=== PATIENT | female | born 1970 | race Caucasian/White ===

== ENCOUNTER 2018-01-31 16:28 | Inpatient (IN) | payer OTHER ==
[2018-01-31 19:05] VITALS: BMI 21.2
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
[2018-02-01] MEDS ORDERED: MENTHOL/PHENOL 1 EACH UD MM PRN (00:05)
[2018-02-01] MEDS ORDERED: MAGNESIUM HYDROX 2400MG/30ML ORAL SUSPENSION 30 ML CUP PO PRN (00:05)
[2018-02-01] MEDS ORDERED: LOPERAMIDE HCL 2 MG CAPSULE PO PRN (00:05)
[2018-02-01] MEDS ORDERED: METHADONE HCL 10 MG TABLET (FOR DETOX USE ONLY) PO ONE ×3 (00:05→23:00)
[2018-02-01] MEDS ORDERED: guaiFENesin/D-METHORPHAN HB 10 ML UNIT-DOSE CUPS PO PRN (00:05)
[2018-02-01] MEDS ORDERED: P-EPHED 60MG/TRIPROLIDI 2.5MG TABLET PO PRN (00:05)
[2018-02-01] MEDS ORDERED: ACETAMINOPHEN 325 MG TABLET (FP) PO PRN (00:05)
[2018-02-01] MEDS ORDERED: MAGNESIUM CITRATE 300 ML BOTTLE PO PRN (00:05)
[2018-02-01] MEDS ORDERED: IBUPROFEN 400 MG TABLET (FP) PO PRN (00:05)
[2018-02-01] MEDS ORDERED: MAG HYDROX/AL HYDROX/SIMETH 30 ML UNIT-DOSE CUP PO PRN (00:05)
[2018-02-01] MEDS ORDERED: cloNIDine HCL 0.1 MG TABLET PO ONE (01:51)
[2018-02-01] MEDS: diazePAM 5 MG TABLET PO PRN ×3 (02:01→22:20)
[2018-02-01] MEDS ORDERED: DOCUSATE SODIUM 100 MG CAPSULE (FP) PO SCH (10:00)
[2018-02-01] MEDS ORDERED: CARVEDILOL 6.25 MG TABLET (FP) PO SCH (10:00)
[2018-02-01] MEDS: ASPIRIN 81 MG CHEWABLE TABLETS PO SCH (10:12)
[2018-02-01] MEDS: PRENATAL VITAMINS W/ FOLIC ACID TABLET (FP) PO SCH (10:13)
[2018-02-01] MEDS: NICOTINE 14 MG/24 HOURS TOPICAL PATCH TD SCH (10:13)
[2018-02-01] MEDS: ENALAPRIL MALEATE 5 MG TABLET (FP) PO SCH (10:13)
[2018-02-01] MEDS: metoPROLOL SUCCINATE 25 MG TAB.SR.24H (FP) PO SCH (10:13)
[2018-02-01] MEDS: ATORVASTATIN CA 40 MG TABLET (FP) PO SCH (10:13)
[2018-02-01] MEDS: amLODIPine BESYLATE 10 MG TABLET (FP) PO SCH (10:15)
--- NOTE | 2018-02-01 11:35 | PN ---
BHS COWS - Scale Resting Pulse: 0= [place] 80 or Below Sweatin= Chills/Flushing Restless Observation: 1= Difficult to Sit Still Pupil Size: 1= Pupils >than Normal Bone or Joint Aches: 2= Severe Diffuse Aches Runny Nose/ Eye Tearin= Nasal Congestion GI Upset > 30mins: 2= Nausea/Diarrhea Tremor Observation of Outstretched Hands: 2= Slight Tremor Visible Yawning Observation: 2= >3x During Session Anxiety or Irritability: 2=Irritable/Anxious Goose Flesh Skin: 0=Smooth Skin COWS Score: 14 BHS Progress Note (SOAP) Subjective: joint pain body ache muscle cramping trouble sleep at night sweat tremor anxiety Objective: 02/01/18 11:37 Vital Signs Temperature 98.1 F 02/01/18 09:31 Pulse Rate 69 02/01/18 09:31 Respiratory Rate 16 02/01/18 09:31 Blood Pressure 143/92 02/01/18 09:31 O2 Sat by Pulse Oximetry (%) lab no available Assessment: 02/01/18 11:37 withdrawal sx Plan: continue detox
--- NOTE | 2018-02-01 15:51 | CONSULT ---
[facility] Psychiatric Consult - Data Date of interview: 02/01/18 Admission source: [facility] Identifying data: Patient is a 47 year old single female, without kids, unemployed, living in a longterm, and supported by [facility]. This is patient's first admission to detox at [facility]. Pt. admitted to for opiate dependence. Substance Abuse History: Smoking Cessation. Smoking history: Current every day smoker. Have you smoked in the past 12 months: Yes. Aproximately how many cigarettes per day: 10. Cigars Per Day: 0. Hx Chewing Tobacco Use: No. Initiated information on smoking cessation: Yes. 'Breaking Loose' booklet given : 01/31/18. - Substance & Tx. History. Hx Alcohol Use: No. Hx Substance Use: Yes. Substance Use Type: Heroin, Marijuana. Hx Substance Use Treatment: Yes ( [facility] 2011). - Substances Abused. Heroin. Route: Inhalation. Frequency: Daily. Amount used: 6 BAGS. Age of first use: 21. Date of Last Use: . Marijuana/Hashish. Route: Smoking. Frequency: 1-2 times per week. Amount used: 1 JOINT. Age of first use: 16. Date of Last Use: 01/30/18 Medical History: Asthma, h/o CHF, CVA (2002,2006), Hep C, ectopic in Psychiatric History: Patient reports one psychiatric hospitalization six years ago at [facility] for depression. Current outpatient psychiatric services is provided at [address] [place] [address] in [facility]. Diagnosis of Bipolar disorder. As per pharmacy claims patient is prescribed latuda 120mg + topamax 100mg TID + Seroquel 100mg qhs + klonopin 0.5mg + clonodine 0.2BID. Pt. reports suboptimal adherence to medications. Reports most recently taking her medication one week ago. Patient denies h/o suicide attempt. Physical/Sexual Abuse/Trauma History: denies. Mental Status Exam - Mental Status Exam Alert and Oriented to: Time, Place, Person Cognitive Function: Good Patient Appearance: Well Groomed Mood: Withdrawn, Euthymic Affect: Mood Congruent Patient Behavior: Fatigued, Cooperative Speech Pattern: Appropriate Voice Loudness: Moderately Soft/Quiet Thought Process: Intact, Goal Oriented Thought Disorder: Not Present Hallucinations: Denies Suicidal Ideation: Denies Homicidal Ideation: Denies Insight/Judgement: Poor Sleep: Fair Appetite: Fair Muscle strength/Tone: Normal Gait/Station: Normal Psychiatric Findings - Problem List ([place] 1, 2,3) (1) Bipolar disorder Current Visit: Yes Status: Chronic Comment: Reports sub- optimal adherence to medications. (2) Opioid dependence with withdrawal Current Visit: Yes Status: Acute (3) Cannabis dependence Current Visit: Yes Status: Acute (4) Substance induced mood disorder Current Visit: Yes Status: Acute - Initial Treatment Plan Initial Treatment Plan: Psychoeducation provided. Detoxification in progress. Will order latuda 60mg qhs (reduced dosaged due to sub-optimal adherence)+ Topamax 100mg BID. Will hold seroquel tonight due to risk of oversedation. Pt. noted to be in bed throughout the day. Pt. agreeable with plan.
--- NOTE | 2018-02-01 17:21 | EKG ---
Test Reason : Blood Pressure : / mmHG Vent. Rate : 069 BPM Atrial Rate : 069 BPM P-R Int : 094 ms QRS Dur : 082 ms QT Int : 406 ms P-R-T Axes : 000 050 019 degrees QTc Int : 435 ms ECTOPIC ATRIAL RHYTHM WITH SHORT NM WITH OCCASIONAL PREMATURE VENTRICULAR COMPLEXES OTHERWISE NORMAL ECG Confirmed by MD YESSY, DEANGELO ([id number]) on 02/01/2018 5:21:03 PM Referred By: Confirmed By:DEANGELO KRISHNAMURTHY MD
[2018-02-01] MEDS ORDERED: LURASIDONE HCL 40 MG, LURASIDONE HCL 20 MG PO SCH (18:30)
[2018-02-01] MEDS ORDERED: LURASIDONE HCL 60 MG PO SCH (18:30)
[2018-02-01] MEDS: TOPIRAMATE 100 MG TABLET PO SCH (22:20)
[2018-02-01] MEDS: THIAMINE HCL 100 MG TABLET (FP) PO SCH (22:21)
[2018-02-02] MEDS: diazePAM 5 MG TABLET PO PRN ×4 (07:49→22:32)
[2018-02-02] MEDS ORDERED: METHADONE HCL 10 MG TABLET (FOR DETOX USE ONLY) PO ONE (10:00)
[2018-02-02] MEDS: ASPIRIN 81 MG CHEWABLE TABLETS PO SCH (10:32)
[2018-02-02] MEDS: ATORVASTATIN CA 40 MG TABLET (FP) PO SCH (10:32)
[2018-02-02] MEDS: PRENATAL VITAMINS W/ FOLIC ACID TABLET (FP) PO SCH (10:32)
[2018-02-02] MEDS: TOPIRAMATE 100 MG TABLET PO SCH ×3 (10:32→22:31)
[2018-02-02] MEDS: NICOTINE 14 MG/24 HOURS TOPICAL PATCH TD SCH (10:35)
[2018-02-02] MEDS: NICOTINE POLACRILEX 2 MG GUM BC PRN (10:35)
[2018-02-02] MEDS: metoPROLOL SUCCINATE 25 MG TAB.SR.24H (FP) PO SCH (10:36)
[2018-02-02] MEDS: amLODIPine BESYLATE 10 MG TABLET (FP) PO SCH (10:36)
[2018-02-02] MEDS: ENALAPRIL MALEATE 5 MG TABLET (FP) PO SCH (10:36)
--- NOTE | 2018-02-02 10:57 | PN ---
BHS COWS - Scale Resting Pulse: 0= [place] 80 or Below Sweatin= Chills/Flushing Restless Observation: 1= Difficult to Sit Still Pupil Size: 1= Pupils >than Normal Bone or Joint Aches: 2= Severe Diffuse Aches Runny Nose/ Eye Tearin= Nasal Congestion GI Upset > 30mins: 2= Nausea/Diarrhea Tremor Observation of Outstretched Hands: 2= Slight Tremor Visible Yawning Observation: 1= 1-2x During Session Anxiety or Irritability: 2=Irritable/Anxious Goose Flesh Skin: 0=Smooth Skin COWS Score: 13 BHS Progress Note (SOAP) Subjective: reported has panic attack on and off now since 8 am requests klonopin that was what the er gave to her patient had 80% breakfast ambulate on [address] social with peers and staff body ache joints pain sweat tremor skin warm able to complete whole sentence Objective: 02/02/18 10:56 Vital Signs Temperature 97.9 F 02/02/18 09:21 Pulse Rate 60 02/02/18 09:21 Respiratory Rate 18 02/02/18 09:21 Blood Pressure 100/66 02/02/18 09:21 O2 Sat by Pulse Oximetry (%) lab not available 02/02/18 10:58 reorder admission lab set Assessment: 02/02/18 10:59 withdrawal sx Plan: continue detox
[2018-02-02] MEDS: CLOPIDOGREL BISULFATE 75 MG TABLET (FP) PO SCH (11:11)
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
[2018-02-02] MEDS ORDERED: QUEtiapine FUMARATE 50 MG TABLET PO ONE (13:30)
[2018-02-02] MEDS: LURASIDONE HCL 40 MG TABLET PO SCH (17:30)
[2018-02-02 17:43] LABS: URINE APPEARANCE CLOUDY; URINE BILIRUBIN NEGATIVE (<2.0 mg/dL); URINE COLOR AMBER; URINE GLUCOSE (UA) NEGATIVE (NEGATIVE); URINE KETONE NEGATIVE (NEGATIVE); URINE LEUK ESTERASE NEGATIVE (NEGATIVE); URINE NITRITE NEGATIVE (NEGATIVE); URINE PROTEIN NEGATIVE (NEGATIVE)
[2018-02-02] MEDS: THIAMINE HCL 100 MG TABLET (FP) PO SCH (22:31)
[2018-02-02] MEDS: QUEtiapine FUMARATE 50 MG TABLET PO SCH (22:32)
[2018-02-03] MEDS: TOPIRAMATE 100 MG TABLET PO SCH ×3 (05:50→22:13)
[2018-02-03] MEDS ORDERED: METHADONE HCL 5 MG TABLET (FOR DETOX USE ONLY) PO ONE (10:00)
[2018-02-03 10:37] LABS: HEMATOCRIT 40.4 % (32.4-45.2); HEMOGLOBIN 13.4 GM/dL (10.7-15.3); MCH 32.1 pg (25.7-33.7); MCHC 33.1 g/dl (32.0-36.0); MEAN CELL VOLUME 97.2 fl (80-96); MEAN PLT VOLUME 10.2 fl (7.5-11.1); PLATELET COUNT 148 K/MM3 (134-434); RBC 4.16 M/mm3 (3.60-5.2); RDW 14.2 % (11.6-15.6); WHITE BLOOD COUNT 5.2 K/mm3 (4.0-10.0)
[2018-02-03 10:54] LABS: CHLORIDE 113 mmol/L (98-107); POTASSIUM 4.4 mmol/L (3.5-5.1); SODIUM 144 mmol/L (136-145)
[2018-02-03 11:12] LABS: ALBUMIN 3.3 g/dl (3.4-5.0); ALK PHOS 113 U/L (45-117); ANION GAP 9 MMOL/L (8-16); BILIRUBIN,TOTAL 0.2 mg/dL (0.2-1.0); BLOOD UREA NITROGEN 19 mg/dL (7-18); CALCIUM 8.4 mg/dL (8.5-10.1); CO2 22 mmol/L (21-32); CREATININE 0.9 mg/dL (0.55-1.02); GLUCOSE,RANDOM 86 mg/dL (74-106); SGOT/AST 58 U/L (15-37); SGPT/ALT 89 U/L (13-61); TOT PROT 6.3 g/dl (6.4-8.2)
[2018-02-03] MEDS: ENALAPRIL MALEATE 5 MG TABLET (FP) PO SCH (11:22)
[2018-02-03] MEDS: ASPIRIN 81 MG CHEWABLE TABLETS PO SCH (11:22)
[2018-02-03] MEDS: CLOPIDOGREL BISULFATE 75 MG TABLET (FP) PO SCH (11:22)
[2018-02-03] MEDS: amLODIPine BESYLATE 10 MG TABLET (FP) PO SCH (11:22)
[2018-02-03] MEDS: metoPROLOL SUCCINATE 25 MG TAB.SR.24H (FP) PO SCH (11:22)
[2018-02-03] MEDS: ATORVASTATIN CA 40 MG TABLET (FP) PO SCH (11:22)
[2018-02-03] MEDS: NICOTINE 14 MG/24 HOURS TOPICAL PATCH TD SCH (11:23)
[2018-02-03] MEDS: PRENATAL VITAMINS W/ FOLIC ACID TABLET (FP) PO SCH (11:23)
[2018-02-03] MEDS: diazePAM 5 MG TABLET PO PRN ×2 (12:18→22:16)
--- NOTE | 2018-02-03 14:00 | PN ---
S Progress Note (SOAP) Subjective: anxiety wants klonopin "I take that every day" discuss risks of benzo mixed with opiate body pain joints pain sweat tremor trouble sleep at night Objective: 02/03/18 13:59 Vital Signs Temperature 98.1 F 02/03/18 09:12 Pulse Rate 73 02/03/18 09:12 Respiratory Rate 18 02/03/18 09:12 Blood Pressure 121/65 02/03/18 09:12 O2 Sat by Pulse Oximetry (%) Laboratory Last Values WBC 5.2 K/mm3 (4.0-10.0) 02/03/18 07:00 RBC 4.16 M/mm3 (3.60-5.2) 02/03/18 07:00 Hgb 13.4 GM/dL (10.7-15.3) 02/03/18 07:00 Hct 40.4 % (32.4-45.2) 02/03/18 07:00 MCV 97.2 fl (80-96) H 02/03/18 07:00 MCH 32.1 pg (25.7-33.7) 02/03/18 07:00 MCHC 33.1 g/dl (32.0-36.0) 02/03/18 07:00 RDW 14.2 % (11.6-15.6) 02/03/18 07:00 Plt Count 148 K/MM3 (134-434) 02/03/18 07:00 MPV 10.2 fl (7.5-11.1) 02/03/18 07:00 Sodium 144 mmol/L (136-145) 02/03/18 07:00 Potassium 4.4 mmol/L (3.5-5.1) 02/03/18 07:00 Chloride 113 mmol/L (98-107) H 02/03/18 07:00 Carbon Dioxide 22 mmol/L (21-32) 02/03/18 07:00 Anion Gap 9 MMOL/L (8-16) 02/03/18 07:00 BUN 19 mg/dL (7-18) H 02/03/18 07:00 Creatinine 0.9 mg/dL (0.55-1.02) 02/03/18 07:00 Creat Clearance w eGFR > 60 (>60) 02/03/18 07:00 Random Glucose 86 mg/dL (74-106) 02/03/18 07:00 Calcium 8.4 mg/dL (8.5-10.1) L 02/03/18 07:00 Total Bilirubin 0.2 mg/dL (0.2-1.0) 02/03/18 07:00 AST 58 U/L (15-37) H 02/03/18 07:00 ALT 89 U/L (13-61) H 02/03/18 07:00 Alkaline Phosphatase 113 U/L (45-117) 02/03/18 07:00 Total Protein 6.3 g/dl (6.4-8.2) L 02/03/18 07:00 Albumin 3.3 g/dl (3.4-5.0) L 02/03/18 07:00 Urine Color [place] 02/02/18 16:45 Urine Appearance Cloudy 02/02/18 16:45 Urine pH 7.0 (5.0-8.0) 02/02/18 16:45 Ur Specific [place] 1.023 (1.001-1.035) 02/02/18 16:45 Urine Protein Negative (NEGATIVE) 02/02/18 16:45 Urine Glucose (UA) Negative (NEGATIVE) 02/02/18 16:45 Urine Ketones Negative (NEGATIVE) 02/02/18 16:45 Urine Blood Negative (NEGATIVE) 02/02/18 16:45 Urine Nitrite Negative (NEGATIVE) 02/02/18 16:45 Urine Bilirubin Negative (<2.0 mg/dL) 02/02/18 16:45 Urine Urobilinogen 2.0 mg/dL (0.2-1.0) H 02/02/18 16:45 Ur Leukocyte Esterase Negative (NEGATIVE) 02/02/18 16:45 RPR Titer Nonreactive (NONREACTIVE) 02/03/18 07:00 lab noted Assessment: 02/03/18 13:59 withdrawal sx Plan: continue detox
[2018-02-03] MEDS: hydrOXYzine PAMOATE 50 MG CAPSULE (FP) PO PRN ×2 (16:45→22:13)
[2018-02-03] MEDS: LURASIDONE HCL 40 MG TABLET PO SCH (17:12)
[2018-02-03] MEDS: PANTOPRAZOLE 20 MG TABLET (FP) PO SCH (17:57)
[2018-02-03] MEDS: QUEtiapine FUMARATE 50 MG TABLET PO SCH (22:13)
[2018-02-03] MEDS: THIAMINE HCL 100 MG TABLET (FP) PO SCH (22:13)
[2018-02-03] MEDS: MELATONIN 5 MG TABLETS PO PRN (22:14)
[2018-02-04] MEDS: hydrOXYzine PAMOATE 50 MG CAPSULE (FP) PO PRN ×3 (03:08→22:41)
[2018-02-04] MEDS: TOPIRAMATE 100 MG TABLET PO SCH ×3 (07:09→22:40)
[2018-02-04] MEDS ORDERED: METHADONE HCL 5 MG TABLET (FOR DETOX USE ONLY) PO ONE (10:00)
[2018-02-04] MEDS: metoPROLOL SUCCINATE 25 MG TAB.SR.24H (FP) PO SCH (10:34)
[2018-02-04] MEDS: PRENATAL VITAMINS W/ FOLIC ACID TABLET (FP) PO SCH (10:34)
[2018-02-04] MEDS: PANTOPRAZOLE 20 MG TABLET (FP) PO SCH (10:34)
[2018-02-04] MEDS: ASPIRIN 81 MG CHEWABLE TABLETS PO SCH (10:34)
[2018-02-04] MEDS: amLODIPine BESYLATE 10 MG TABLET (FP) PO SCH (10:34)
[2018-02-04] MEDS: ATORVASTATIN CA 40 MG TABLET (FP) PO SCH (10:34)
[2018-02-04] MEDS: CLOPIDOGREL BISULFATE 75 MG TABLET (FP) PO SCH (10:34)
[2018-02-04] MEDS: ENALAPRIL MALEATE 5 MG TABLET (FP) PO SCH (10:34)
[2018-02-04] MEDS: NICOTINE 14 MG/24 HOURS TOPICAL PATCH TD SCH (10:36)
--- NOTE | 2018-02-04 11:06 | PN ---
BHS Progress Note (SOAP) Subjective: sweats shakes interrupted sleep ambulating Objective: 02/04/18 11:06 Vital Signs Temperature 98.1 F 02/04/18 10:04 Pulse Rate 69 02/04/18 10:04 Respiratory Rate 20 02/04/18 10:04 Blood Pressure 92/62 02/04/18 10:04 O2 Sat by Pulse Oximetry (%) aaox3 ambulating no acute distress Assessment: 02/04/18 11:06 withdrawal sx Plan: continue detox increase fluids
[2018-02-04] MEDS: LURASIDONE HCL 40 MG TABLET PO SCH (17:18)
[2018-02-04] MEDS: NICOTINE POLACRILEX 2 MG GUM BC PRN (17:24)
[2018-02-04] MEDS: THIAMINE HCL 100 MG TABLET (FP) PO SCH (22:40)
[2018-02-04] MEDS: QUEtiapine FUMARATE 50 MG TABLET PO SCH (22:40)
[2018-02-04] MEDS: MELATONIN 5 MG TABLETS PO PRN (22:41)
[2018-02-05] MEDS: TOPIRAMATE 100 MG TABLET PO SCH ×3 (07:00→22:25)
[2018-02-05] MEDS ORDERED: METHADONE HCL 10 MG TABLET (FOR DETOX USE ONLY) PO ONE (10:00)
[2018-02-05] MEDS: CLOPIDOGREL BISULFATE 75 MG TABLET (FP) PO SCH (10:34)
[2018-02-05] MEDS: PRENATAL VITAMINS W/ FOLIC ACID TABLET (FP) PO SCH (10:34)
[2018-02-05] MEDS: PANTOPRAZOLE 20 MG TABLET (FP) PO SCH (10:34)
[2018-02-05] MEDS: ASPIRIN 81 MG CHEWABLE TABLETS PO SCH (10:34)
[2018-02-05] MEDS: ATORVASTATIN CA 40 MG TABLET (FP) PO SCH (10:35)
[2018-02-05] MEDS: ENALAPRIL MALEATE 5 MG TABLET (FP) PO SCH (10:35)
[2018-02-05] MEDS: amLODIPine BESYLATE 10 MG TABLET (FP) PO SCH (10:35)
[2018-02-05] MEDS: metoPROLOL SUCCINATE 25 MG TAB.SR.24H (FP) PO SCH (10:35)
[2018-02-05] MEDS: NICOTINE 14 MG/24 HOURS TOPICAL PATCH TD SCH (10:35)
[2018-02-05] MEDS: hydrOXYzine PAMOATE 50 MG CAPSULE (FP) PO PRN ×3 (12:05→22:43)
--- NOTE | 2018-02-05 12:24 | PN ---
BHS Progress Note (SOAP) Subjective: pt states she is feeling a lot of anxiety- was on clonidine and klonopin for anxiety- not getting these here. O: Vital Signs - 24 hr 02/04/18 02/04/18 02/04/18 14:00 18:23 22:33 Temperature 97.1 F L 97.5 F L 97.6 F Pulse Rate 81 77 61 Respiratory 16 19 16 Rate Blood Pressure 129/66 101/70 105/64 02/05/18 02/05/18 02/05/18 00:30 07:56 08:59 Temperature 98.2 F Pulse Rate 68 Respiratory 18 18 16 Rate Blood Pressure 95/66 Laboratory Tests 02/02/18 02/03/18 02/03/18 16:45 07:00 07:00 WBC 5.2 RBC 4.16 Hgb 13.4 Hct 40.4 MCV 97.2 H MCH 32.1 MCHC 33.1 RDW 14.2 Plt Count 148 MPV 10.2 Sodium 144 Potassium 4.4 Chloride 113 H Carbon Dioxide 22 Anion Gap 9 BUN 19 H Creatinine 0.9 Creat Clearance w eGFR > 60 Random Glucose 86 Calcium 8.4 L Total Bilirubin 0.2 AST 58 H ALT 89 H Alkaline Phosphatase 113 Total Protein 6.3 L Albumin 3.3 L Urine Color Samanta Urine Appearance Cloudy Urine pH 7.0 Ur Specific [place] 1.023 Urine Protein Negative Urine Glucose (UA) Negative Urine Ketones Negative Urine Blood Negative Urine Nitrite Negative Urine Bilirubin Negative Urine Urobilinogen 2.0 H Ur Leukocyte Esterase Negative RPR Titer 02/03/18 07:00 WBC RBC Hgb Hct MCV MCH MCHC RDW Plt Count MPV Sodium Potassium Chloride Carbon Dioxide Anion Gap BUN Creatinine Creat Clearance w eGFR Random Glucose Calcium Total Bilirubin AST ALT Alkaline Phosphatase Total Protein Albumin Urine Color Urine Appearance Urine pH Ur Specific [place] Urine Protein Urine Glucose (UA) Urine Ketones Urine Blood Urine Nitrite Urine Bilirubin Urine Urobilinogen Ur Leukocyte Esterase RPR Titer Nonreactive mildly increased liver enzymes decreased BP- repeat sBP ~120 a/p: continue detox protocol- about completed. vistaril given for anxiety- pt states not helping, will give clonidine 0.1mg ( takes 0.2mg at home) BP OK Psych consult for anxiety
[2018-02-05] MEDS ORDERED: cloNIDine HCL 0.1 MG TABLET PO ONE (13:00)
[2018-02-05] MEDS: LURASIDONE HCL 40 MG TABLET PO SCH (17:23)
[2018-02-05] MEDS: QUEtiapine FUMARATE 50 MG TABLET PO SCH (22:25)
[2018-02-05] MEDS: THIAMINE HCL 100 MG TABLET (FP) PO SCH (22:25)
[2018-02-06] MEDS ORDERED: METHADONE HCL 5 MG TABLET (FOR DETOX USE ONLY) PO ONE (06:00)
[2018-02-06] MEDS: TOPIRAMATE 100 MG TABLET PO SCH (06:10)
--- NOTE | 2018-02-06 09:01 | DS ---
[facility] Detox Discharge Summary Admission Date: 01/31/18 Discharge Date: 02/06/18 - History Present History: Opioid Dependence Additional Comments: 47 years old female admitted on 01/31/18 for opiate withdrawal sx completed detox regimen tolerated well denies opiate withdrawal sx alert oriented x 3 no acute distress [facility] - Physical Exam Results Vital Signs: Vital Signs Temperature 96.4 F L 02/05/18 22:42 Pulse Rate 69 02/06/18 07:42 Respiratory Rate 18 02/06/18 07:42 Blood Pressure 96/59 02/06/18 07:42 O2 Sat by Pulse Oximetry (%) Pertinent Admission Physical Exam Findings: opiate withdrawal sx Vital Signs Temperature 97.7 F 02/06/18 09:38 Pulse Rate 80 02/06/18 09:38 Respiratory Rate 18 02/06/18 09:38 Blood Pressure 103/68 02/06/18 09:38 O2 Sat by Pulse Oximetry (%) Laboratory Last Values WBC 5.2 K/mm3 (4.0-10.0) 02/03/18 07:00 RBC 4.16 M/mm3 (3.60-5.2) 02/03/18 07:00 Hgb 13.4 GM/dL (10.7-15.3) 02/03/18 07:00 Hct 40.4 % (32.4-45.2) 02/03/18 07:00 MCV 97.2 fl (80-96) H 02/03/18 07:00 MCH 32.1 pg (25.7-33.7) 02/03/18 07:00 MCHC 33.1 g/dl (32.0-36.0) 02/03/18 07:00 RDW 14.2 % (11.6-15.6) 02/03/18 07:00 Plt Count 148 K/MM3 (134-434) 02/03/18 07:00 MPV 10.2 fl (7.5-11.1) 02/03/18 07:00 Sodium 144 mmol/L (136-145) 02/03/18 07:00 Potassium 4.4 mmol/L (3.5-5.1) 02/03/18 07:00 Chloride 113 mmol/L (98-107) H 02/03/18 07:00 Carbon Dioxide 22 mmol/L (21-32) 02/03/18 07:00 Anion Gap 9 MMOL/L (8-16) 02/03/18 07:00 BUN 19 mg/dL (7-18) H 02/03/18 07:00 Creatinine 0.9 mg/dL (0.55-1.02) 02/03/18 07:00 Creat Clearance w eGFR > 60 (>60) 02/03/18 07:00 Random Glucose 86 mg/dL (74-106) 02/03/18 07:00 Calcium 8.4 mg/dL (8.5-10.1) L 02/03/18 07:00 Total Bilirubin 0.2 mg/dL (0.2-1.0) 02/03/18 07:00 AST 58 U/L (15-37) H 02/03/18 07:00 ALT 89 U/L (13-61) H 02/03/18 07:00 Alkaline Phosphatase 113 U/L (45-117) 02/03/18 07:00 Total Protein 6.3 g/dl (6.4-8.2) L 02/03/18 07:00 Albumin 3.3 g/dl (3.4-5.0) L 02/03/18 07:00 Urine Color [place] 02/02/18 16:45 Urine Appearance Cloudy 02/02/18 16:45 Urine pH 7.0 (5.0-8.0) 02/02/18 16:45 Ur Specific [place] 1.023 (1.001-1.035) 02/02/18 16:45 Urine Protein Negative (NEGATIVE) 02/02/18 16:45 Urine Glucose (UA) Negative (NEGATIVE) 02/02/18 16:45 Urine Ketones Negative (NEGATIVE) 02/02/18 16:45 Urine Blood Negative (NEGATIVE) 02/02/18 16:45 Urine Nitrite Negative (NEGATIVE) 02/02/18 16:45 Urine Bilirubin Negative (<2.0 mg/dL) 02/02/18 16:45 Urine Urobilinogen 2.0 mg/dL (0.2-1.0) H 02/02/18 16:45 Ur Leukocyte Esterase Negative (NEGATIVE) 02/02/18 16:45 RPR Titer Nonreactive (NONREACTIVE) 02/03/18 07:00 lab noted - Treatment Hospital Course: Detox Protocol Followed, Detoxed Safely, Responded well, Discharged Condition Good, Rehab Referral Accepted Patient has Accepted a Rehab Referral to: [facility] - Medication Discharge Medications: Ambulatory Orders Aspirin [ASA -] 81 mg PO DAILY 01/31/18 Bisacodyl [Bisacodyl -] 5 mg PO DAILY 01/31/18 Docusate Sodium [Colace -] 100 mg PO DAILY 01/31/18 Famotidine [Heartburn Prevention] 20 mg PO DAILY 01/31/18 Hydroxyzine HCl 50 mg PO DAILY 01/31/18 Loratadine [Claritin -] 10 mg PO DAILY 01/31/18 Tenofovir Alafenamide Fumarate [Vemlidy] 25 mg PO DAILY 01/31/18 Lurasidone HCl [Latuda] 60 mg PO HS 02/01/18 Topiramate [Topamax -] 100 mg PO BID 02/01/18 Quetiapine Fumarate [Seroquel] 50 mg PO HS 02/02/18 Amlodipine Besylate [Norvasc -] 10 mg PO DAILY #30 tablet 02/06/18 Atorvastatin Ca [Lipitor] 40 mg PO DAILY #30 tablet 02/06/18 Clopidogrel Bisulfate [Plavix -] 75 mg PO DAILY #30 tablet 02/06/18 Enalapril Maleate [Vasotec -] 5 mg PO DAILY #30 tablet 02/06/18 Gabapentin [Neurontin -] 800 mg PO DAILY #30 capsule 02/06/18 Metoprolol Succinate [Toprol XL -] 25 mg PO DAILY #30 tab.sr.24h 02/06/18 - Diagnosis (1) Opioid dependence with withdrawal Status: Acute (2) Asthma Status: Chronic Qualifiers: Asthma severity: mild Asthma persistence: intermittent Asthma complication type: with status asthmaticus Qualified Code(s): J45.22 - Mild intermittent asthma with status asthmaticus (3) HTN (hypertension) Status: Chronic Qualifiers: Hypertension type: essential hypertension Qualified Code(s): I10 - Essential (primary) hypertension (4) Heart failure Status: Chronic Qualifiers: Heart failure type: unspecified Heart failure chronicity: unspecified Qualified Code(s): I50.9 - Heart failure, unspecified (5) Hep B w/o coma Status: Chronic (6) Hyperlipidemia Status: Chronic Qualifiers: Hyperlipidemia type: pure hypercholesterolemia Qualified Code(s): E78.00 - Pure hypercholesterolemia, unspecified; E78.0 - Pure hypercholesterolemia (7) Nicotine dependence Status: Acute Qualifiers: Nicotine product type: cigarettes Substance use status: in withdrawal Qualified Code(s): F17.213 - Nicotine dependence, cigarettes, with withdrawal (8) Schizoaffective disorder Status: Suspected Qualifiers: Schizoaffective disorder type: bipolar Qualified Code(s): F25.0 - Schizoaffective disorder, bipolar type - AMA Did Patient Leave Against Medical Advice: No
[2018-02-06 09:38] VITALS: BP 103/68; PULSE 80; TEMP 97.7
[2018-02-06] MEDS: CLOPIDOGREL BISULFATE 75 MG TABLET (FP) PO SCH (09:56)
[2018-02-06] MEDS: amLODIPine BESYLATE 10 MG TABLET (FP) PO SCH (09:56)
[2018-02-06] MEDS: PRENATAL VITAMINS W/ FOLIC ACID TABLET (FP) PO SCH (09:56)
[2018-02-06] MEDS: NICOTINE 14 MG/24 HOURS TOPICAL PATCH TD SCH (09:56)
[2018-02-06] MEDS: ASPIRIN 81 MG CHEWABLE TABLETS PO SCH (09:56)
[2018-02-06] MEDS: ATORVASTATIN CA 40 MG TABLET (FP) PO SCH (09:56)
[2018-02-06] MEDS: PANTOPRAZOLE 20 MG TABLET (FP) PO SCH (09:56)
[2018-02-06] MEDS: ENALAPRIL MALEATE 5 MG TABLET (FP) PO SCH (09:57)
[2018-02-06] MEDS: metoPROLOL SUCCINATE 25 MG TAB.SR.24H (FP) PO SCH (09:57)
== END 2018-02-06 09:47 | disposition home or self-care (01) | DRG 773 ==
LOC: YASAS 16:28 → Y6N 22:47
PROC: HZ2ZZZZ Detoxification Services for Substance Abuse Treatment (ICD-10-PCS; principal; 2018-01-31)
DX: F11.23 Opioid dependence with withdrawal (principal); F12.20 Cannabis dependence, uncomplicated; F17.213 Nicotine dependence, cigarettes, with withdrawal; F25.0 Schizoaffective disorder, bipolar type; F31.9 Bipolar disorder, unspecified; F19.24 Other psychoactive substance dependence with psychoactive substance-induced mood disorder; F41.9 Anxiety disorder, unspecified; I25.10 Atherosclerotic heart disease of native coronary artery without angina pectoris; I11.0 Hypertensive heart disease with heart failure; E78.00 Pure hypercholesterolemia, unspecified; B19.10 Unspecified viral hepatitis B without hepatic coma; J45.909 Unspecified asthma, uncomplicated; Z86.19 Personal history of other infectious and parasitic diseases; Z86.73 Personal history of transient ischemic attack (TIA), and cerebral infarction without residual deficits; Z88.8 Allergy status to other drugs, medicaments and biological substances
CPT/HCPCS: 36415; 80053; 81003; 85027; 86593; 93005; 93010; J0735

== ENCOUNTER 2018-07-04 11:01 | Inpatient (IN) | payer OTHER ==
[2018-07-04 11:17] VITALS: BMI 21.2
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
[2018-07-04] MEDS ORDERED: MAGNESIUM HYDROX 2400MG/30ML ORAL SUSPENSION 30 ML CUP PO PRN (13:59)
[2018-07-04] MEDS ORDERED: MAG HYDROX/AL HYDROX/SIMETH 30 ML UNIT-DOSE CUP PO PRN (13:59)
[2018-07-04] MEDS ORDERED: MAGNESIUM CITRATE 300 ML BOTTLE PO PRN (13:59)
[2018-07-04] MEDS ORDERED: P-EPHED 60MG/TRIPROLIDI 2.5MG TABLET PO PRN (13:59)
[2018-07-04] MEDS ORDERED: IBUPROFEN 400 MG TABLET (FP) PO PRN (13:59)
[2018-07-04] MEDS ORDERED: LOPERAMIDE HCL 2 MG CAPSULE PO PRN (13:59)
[2018-07-04] MEDS ORDERED: MENTHOL/PHENOL 1 EACH UD MM PRN (13:59)
[2018-07-04] MEDS ORDERED: NICOTINE POLACRILEX 2 MG GUM BUC PRN (13:59)
[2018-07-04] MEDS ORDERED: guaiFENesin/D-METHORPHAN HB 10 ML UNIT-DOSE CUPS PO PRN (13:59)
[2018-07-04] MEDS ORDERED: ALBUTEROL SO4 2.5/IPRATROPIUM 0.5 INH SOL 3 ML VIAL.NEB. NEB PRN (14:09)
[2018-07-04] MEDS ORDERED: METHADONE HCL 10 MG TABLET (FOR DETOX USE ONLY) PO ONE ×2 (15:35→23:00)
[2018-07-04] MEDS: CYCLOBENZAPRINE HCL 5 MG TABLET PO PRN (15:56)
[2018-07-04] MEDS: ALBUTEROL SO4 8 GM HFA INHALER IH PRN (15:57)
[2018-07-04] MEDS: chlordiazePOXIDE HCL 25 MG CAPSULE PO SCH ×2 (15:59→22:40)
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
[2018-07-04] MEDS ORDERED: cloNIDine HCL 0.1 MG TABLET PO ONE (17:00)
[2018-07-04] MEDS: ONDANSETRON *ODT* 4 MG TABLET SL PRN (19:08)
[2018-07-04] MEDS ORDERED: QUEtiapine FUMARATE 100 MG TABLET (FP) PO SCH (22:00)
[2018-07-04] MEDS: THIAMINE HCL 100 MG TABLET (FP) PO SCH (22:40)
[2018-07-04] MEDS: RANITIDINE HCL 150 MG TABLET (FP) PO SCH (22:41)
[2018-07-04] MEDS: MELATONIN 5 MG TABLETS PO PRN (22:46)
[2018-07-04] MEDS: ACETAMINOPHEN 325 MG TABLET (FP) PO PRN (23:09)
[2018-07-04 23:20] LABS: URINE APPEARANCE CLEAR; URINE BILIRUBIN NEGATIVE (<2.0 mg/dL); URINE COLOR AMBER; URINE GLUCOSE (UA) NEGATIVE (NEGATIVE); URINE KETONE NEGATIVE (NEGATIVE); URINE LEUK ESTERASE NEGATIVE (NEGATIVE); URINE NITRITE NEGATIVE (NEGATIVE); URINE PROTEIN NEGATIVE (NEGATIVE); URINE UROBILINOGEN 4.0 E.U/dl mg/dL (0.2-1.0)
[2018-07-05] MEDS: chlordiazePOXIDE HCL 25 MG CAPSULE PO SCH ×4 (06:00→22:28)
[2018-07-05] MEDS: ALBUTEROL SO4 8 GM HFA INHALER IH PRN (06:09)
[2018-07-05] MEDS: ACETAMINOPHEN 325 MG TABLET (FP) PO PRN (06:10)
[2018-07-05] MEDS: ONDANSETRON *ODT* 4 MG TABLET SL PRN (06:51)
[2018-07-05] MEDS ORDERED: RANITIDINE HCL 150 MG TABLET (FP) PO SCH (10:00)
[2018-07-05] MEDS ORDERED: METHADONE HCL 10 MG TABLET (FOR DETOX USE ONLY) PO SCH (10:00)
[2018-07-05] MEDS ORDERED: ENALAPRIL MALEATE 5 MG TABLET (FP) PO SCH (10:00)
[2018-07-05] MEDS: ASPIRIN 81 MG CHEWABLE TABLETS PO SCH (10:14)
[2018-07-05] MEDS: ATORVASTATIN CA 40 MG TABLET (FP) PO SCH (10:14)
[2018-07-05] MEDS: RANITIDINE HCL 150 MG TABLET (FP) PO SCH ×2 (10:14→22:28)
[2018-07-05] MEDS: NICOTINE 14 MG/24 HOURS TOPICAL PATCH TD SCH (10:14)
[2018-07-05] MEDS: metoPROLOL SUCCINATE 25 MG TAB.SR.24H (FP) PO SCH (10:14)
[2018-07-05] MEDS: PRENATAL VITAMINS W/ FOLIC ACID TABLET (FP) PO SCH (10:15)
[2018-07-05] MEDS: LORATADINE 10 MG TABLET PO SCH (10:15)
[2018-07-05 11:03] LABS: HEMATOCRIT 42.2 % (32.4-45.2); HEMOGLOBIN 14.6 GM/dL (10.7-15.3); MCH 33.2 pg (25.7-33.7); MCHC 34.6 g/dl (32.0-36.0); MEAN PLT VOLUME 9.5 fl (7.5-11.1); PLATELET COUNT 187 K/MM3 (134-434); RDW 15.2 % (11.6-15.6)
[2018-07-05 11:11] LABS: ALBUMIN 3.7 g/dl (3.4-5.0); ALK PHOS 114 U/L (45-117); ANION GAP 7 MMOL/L (8-16); BILIRUBIN,TOTAL 0.6 mg/dL (0.2-1); BLOOD UREA NITROGEN 9 mg/dL (7-18); CALCIUM 8.5 mg/dL (8.5-10.1); CHLORIDE 106 mmol/L (98-107); CO2 28 mmol/L (21-32); CREATININE 0.8 mg/dL (0.55-1.3); GLUCOSE,RANDOM 101 mg/dL (74-106); POTASSIUM 3.5 mmol/L (3.5-5.1); SGOT/AST 46 U/L (15-37); SGPT/ALT 54 U/L (13-61); SODIUM 142 mmol/L (136-145); TOT PROT 6.8 g/dl (6.4-8.2)
--- NOTE | 2018-07-05 11:54 | PN ---
[facility] CIWA - CIWA Score Nausea/Vomitin-Mild Nausea/No Vomiting Muscle Tremors: 3 Anxiety: 3 Agitation: 3 Paroxysmal Sweats: 1-Minimal Palms Moist Orientation: 1-Uncertain about Date Tacttile Disturbances: 1-Very Mild Itch/Numbness Auditory Disturbances: 0-None Visual Disturbances: 0-None Headache: 1-Very Mild CIWA-Ar Total Score: 14 S COWS - Scale Resting Pulse: 0= [place] 80 or Below Sweatin= Chills/Flushing Restless Observation: 1= Difficult to Sit Still Pupil Size: 0= Normal to Room Light Bone or Joint Aches: 2= Severe Diffuse Aches Runny Nose/ Eye Tearin= Nasal Congestion GI Upset > 30mins: 1= Stomach Cramp Tremor Observation of Outstretched Hands: 1= Tremor [place], Not Seen Yawning Observation: 1= 1-2x During Session Anxiety or Irritability: 2=Irritable/Anxious Goose Flesh Skin: 0=Smooth Skin COWS Score: 10 [facility] Progress Note (SOAP) Subjective: body aches tremor anxiety restlessness x 3 years sober on and off throughout the years tearful determines to care for self and maintain sober Objective: 07/05/18 11:55 Vital Signs Temperature 96.7 F L 07/05/18 09:13 Pulse Rate 68 07/05/18 09:13 Respiratory Rate 16 07/05/18 09:13 Blood Pressure 103/72 07/05/18 09:13 O2 Sat by Pulse Oximetry (%) Laboratory Last Values WBC 9.0 K/mm3 (4.0-10.0) 07/05/18 08:10 RBC 4.40 M/mm3 (3.60-5.2) 07/05/18 08:10 Hgb 14.6 GM/dL (10.7-15.3) 07/05/18 08:10 Hct 42.2 % (32.4-45.2) 07/05/18 08:10 MCV 96.0 fl (80-96) 07/05/18 08:10 MCH 33.2 pg (25.7-33.7) 07/05/18 08:10 MCHC 34.6 g/dl (32.0-36.0) 07/05/18 08:10 RDW 15.2 % (11.6-15.6) 07/05/18 08:10 Plt Count 187 K/MM3 (134-434) D 07/05/18 08:10 MPV 9.5 fl (7.5-11.1) 07/05/18 08:10 Sodium 142 mmol/L (136-145) 07/05/18 08:10 Potassium 3.5 mmol/L (3.5-5.1) 07/05/18 08:10 Chloride 106 mmol/L (98-107) 07/05/18 08:10 Carbon Dioxide 28 mmol/L (21-32) 07/05/18 08:10 Anion Gap 7 MMOL/L (8-16) L 07/05/18 08:10 BUN 9 mg/dL (7-18) 07/05/18 08:10 Creatinine 0.8 mg/dL (0.55-1.3) 07/05/18 08:10 Creat Clearance w eGFR > 60 (>60) 07/05/18 08:10 Random Glucose 101 mg/dL (74-106) 07/05/18 08:10 Calcium 8.5 mg/dL (8.5-10.1) 07/05/18 08:10 Total Bilirubin 0.6 mg/dL (0.2-1) 07/05/18 08:10 AST 46 U/L (15-37) H 07/05/18 08:10 ALT 54 U/L (13-61) 07/05/18 08:10 Alkaline Phosphatase 114 U/L (45-117) 07/05/18 08:10 Total Protein 6.8 g/dl (6.4-8.2) 07/05/18 08:10 Albumin 3.7 g/dl (3.4-5.0) 07/05/18 08:10 Urine Color [place] 07/04/18 22:15 Urine Appearance Clear 07/04/18 22:15 Urine pH 6.0 (5.0-8.0) 07/04/18 22:15 Ur Specific [place] 1.023 (1.010-1.035) 07/04/18 22:15 Urine Protein Negative (NEGATIVE) 07/04/18 22:15 Urine Glucose (UA) Negative (NEGATIVE) 07/04/18 22:15 Urine Ketones Negative (NEGATIVE) 07/04/18 22:15 Urine Blood Negative (NEGATIVE) 07/04/18 22:15 Urine Nitrite Negative (NEGATIVE) 07/04/18 22:15 Urine Bilirubin Negative (<2.0 mg/dL) 07/04/18 22:15 Urine Urobilinogen 4.0 e.u/dl mg/dL (0.2-1.0) H 07/04/18 22:15 Ur Leukocyte Esterase Negative (NEGATIVE) 07/04/18 22:15 lab noted increase enalapril to 5 mg bid Assessment: 07/05/18 11:56 withdrawal sx denies suicidal ideation that suicided patient is angry but good self control verbalizes feelings and coping machines Plan: continue detox
[2018-07-05] MEDS: ENALAPRIL MALEATE 5 MG TABLET (FP) PO SCH ×2 (12:09→22:28)
[2018-07-05] MEDS: chlordiazePOXIDE HCL 25 MG CAPSULE PO PRN (15:45)
--- NOTE | 2018-07-05 20:03 | PN ---
[facility] Progress Note Note: Psychiatry Attending's note (delayed) : Called by nurse. Issue : patient requests seroquel at bedtime. Chart reviewed. Normal vitals. No sedation reported. Patient is ambulatory all day.Steady gait. Anxious. Intervention : seroquel 100 mg po hs. Ordered. Will follow and titrate as clinically indicated.
[2018-07-05] MEDS: THIAMINE HCL 100 MG TABLET (FP) PO SCH (22:28)
[2018-07-05] MEDS: QUEtiapine FUMARATE 100 MG TABLET (FP) PO SCH (22:28)
[2018-07-05] MEDS: MELATONIN 5 MG TABLETS PO PRN (22:44)
[2018-07-06] MEDS: chlordiazePOXIDE HCL 25 MG CAPSULE PO PRN ×4 (01:22→22:18)
[2018-07-06] MEDS: chlordiazePOXIDE HCL 25 MG CAPSULE PO SCH ×2 (05:32→10:35)
[2018-07-06] MEDS: PRENATAL VITAMINS W/ FOLIC ACID TABLET (FP) PO SCH (10:34)
[2018-07-06] MEDS: LORATADINE 10 MG TABLET PO SCH (10:35)
[2018-07-06] MEDS: ASPIRIN 81 MG CHEWABLE TABLETS PO SCH (10:35)
[2018-07-06] MEDS: metoPROLOL SUCCINATE 25 MG TAB.SR.24H (FP) PO SCH (10:35)
[2018-07-06] MEDS: METHADONE HCL 5 MG TABLET (FOR DETOX USE ONLY) PO SCH (10:36)
[2018-07-06] MEDS: RANITIDINE HCL 150 MG TABLET (FP) PO SCH (10:36)
[2018-07-06] MEDS: NICOTINE 14 MG/24 HOURS TOPICAL PATCH TD SCH (10:36)
[2018-07-06] MEDS: CYCLOBENZAPRINE HCL 5 MG TABLET PO PRN ×2 (10:36→18:24)
[2018-07-06] MEDS: ENALAPRIL MALEATE 5 MG TABLET (FP) PO SCH ×2 (10:36→22:18)
[2018-07-06] MEDS: ATORVASTATIN CA 40 MG TABLET (FP) PO SCH (10:36)
[2018-07-06] MEDS: ONDANSETRON *ODT* 4 MG TABLET SL PRN (12:35)
[2018-07-06] MEDS ORDERED: metoPROLOL SUCCINATE 25 MG TAB.SR.24H (FP) PO ONE (14:46)
--- NOTE | 2018-07-06 14:46 | PN ---
S CIWA - CIWA Score Nausea/Vomitin Muscle Tremors: 2 Anxiety: 4-Mod. Anxious/Guarded Agitation: 3 Paroxysmal Sweats: 2 Orientation: 2-Disoriented Date<2 days Tacttile Disturbances: 1-Very Mild Itch/Numbness Auditory Disturbances: 0-None Visual Disturbances: 1-Very Mild Sensitivity Headache: 0-None Present CIWA-Ar Total Score: 18 [facility] COWS - Scale Resting Pulse: 1= [place] 81-100 Sweatin= Chills/Flushing Restless Observation: 1= Difficult to Sit Still Pupil Size: 0= Normal to Room Light Bone or Joint Aches: 2= Severe Diffuse Aches Runny Nose/ Eye Tearin= None GI Upset > 30mins: 2= Nausea/Diarrhea Tremor Observation of Outstretched Hands: 2= Slight Tremor Visible Yawning Observation: 1= 1-2x During Session Anxiety or Irritability: 4=Extreme Anxiety Goose Flesh Skin: 0=Smooth Skin COWS Score: 14 [facility] Progress Note (SOAP) Subjective: Interrupted Sleep, H/A, Nausea, Tremors, Sweating, Diarrhea, Body Aches, Hot / Cold Sensations. Objective: PATIENT A & O X 2 (UNCERTAIN ABOUT CURRENT DAY / DATE). PATIENT OBSERVED AMBULATING ON UNIT. IN NO ACUTE DISTRESS. 07/06/18 14:43 Vital Signs Temperature 98.3 F 07/06/18 13:36 Pulse Rate 82 07/06/18 13:36 Respiratory Rate 18 07/06/18 13:36 Blood Pressure 147/110 H 07/06/18 13:36 O2 Sat by Pulse Oximetry (%) Laboratory Tests 07/04/18 07/05/18 07/05/18 22:15 08:10 08:10 WBC 9.0 RBC 4.40 Hgb 14.6 Hct 42.2 MCV 96.0 MCH 33.2 MCHC 34.6 RDW 15.2 Plt Count 187 D MPV 9.5 Sodium 142 Potassium 3.5 Chloride 106 Carbon Dioxide 28 Anion Gap 7 L BUN 9 Creatinine 0.8 Creat Clearance w eGFR > 60 Random Glucose 101 Calcium 8.5 Total Bilirubin 0.6 AST 46 H ALT 54 Alkaline Phosphatase 114 Total Protein 6.8 Albumin 3.7 Urine Color Sam[place] Urine Appearance Clear Urine pH 6.0 Ur Specific [place] 1.023 Urine Protein Negative Urine Glucose (UA) Negative Urine Ketones Negative Urine Blood Negative Urine Nitrite Negative Urine Bilirubin Negative Urine Urobilinogen 4.0 e.u/dl H Ur Leukocyte Esterase Negative RPR Titer 07/05/18 08:10 WBC RBC Hgb Hct MCV MCH MCHC RDW Plt Count MPV Sodium Potassium Chloride Carbon Dioxide Anion Gap BUN Creatinine Creat Clearance w eGFR Random Glucose Calcium Total Bilirubin AST ALT Alkaline Phosphatase Total Protein Albumin Urine Color Urine Appearance Urine pH Ur Specific [place] Urine Protein Urine Glucose (UA) Urine Ketones Urine Blood Urine Nitrite Urine Bilirubin Urine Urobilinogen Ur Leukocyte Esterase RPR Titer Nonreactive LABS NOTED. Assessment: 07/06/18 14:46 WITHDRAWAL SYMPTOMS. HYPERTENSION. Plan: CONTINUE DETOX. PRN IMMODIUM PO FOR DIARRHEA. INCREASE METOPROLOL (TOPROL XL) TO 50 MG PO DAILY FOR ELEVATED BP DESPITE TREATMENT. ZOFRAN SL FOR NAUSEA. PROTONIX PO FOR ACID REFLUX (PATIENT REPORTS HISTORY OF TAKING PRILOSEC FOR ACID REFLUX OUTPATIENT).
--- NOTE | 2018-07-06 16:36 | PN ---
[facility] Progress Note Note: Received Notice from RN that Patient Reports that Immdoium has not been effective for treatment of Diarrhea. Will change to Lomotil PO PRN for treatment of diarrhea going forward. Eran Fuentes NP
[2018-07-06] MEDS: DIPHENOXYLATE 2.5/ATROPINE.025 1 COMBO TABLET PO PRN ×2 (18:23→22:19)
[2018-07-06] MEDS: chlordiazePOXIDE 5 MG CAPSULE PO SCH ×2 (18:30→22:41)
[2018-07-06] MEDS: QUEtiapine FUMARATE 100 MG TABLET (FP) PO SCH (22:18)
[2018-07-06] MEDS: THIAMINE HCL 100 MG TABLET (FP) PO SCH (22:19)
[2018-07-06] MEDS: MELATONIN 5 MG TABLETS PO PRN (22:19)
[2018-07-07] MEDS: chlordiazePOXIDE 5 MG CAPSULE PO SCH ×2 (06:18→10:56)
[2018-07-07] MEDS: PANTOPRAZOLE 40 MG TABLET (FP) PO SCH (06:19)
[2018-07-07] MEDS: ONDANSETRON *ODT* 4 MG TABLET SL PRN ×3 (06:27→20:15)
--- NOTE | 2018-07-07 09:22 | PN ---
S Progress Note (SOAP) Subjective: alert,irritable,anxious,interrupted sleep Objective: 07/07/18 09:22 Vital Signs Temperature 97.8 F 07/07/18 09:01 Pulse Rate 63 07/07/18 09:01 Respiratory Rate 18 07/07/18 09:01 Blood Pressure 104/51 L 07/07/18 09:01 O2 Sat by Pulse Oximetry (%) Assessment: 07/07/18 09:22 withdrawal symptom Plan: continue detox
[2018-07-07] MEDS: METHADONE HCL 5 MG TABLET (FOR DETOX USE ONLY) PO SCH (10:55)
[2018-07-07] MEDS: ENALAPRIL MALEATE 5 MG TABLET (FP) PO SCH ×2 (10:56→23:09)
[2018-07-07] MEDS: ASPIRIN 81 MG CHEWABLE TABLETS PO SCH (10:56)
[2018-07-07] MEDS: DIPHENOXYLATE 2.5/ATROPINE.025 1 COMBO TABLET PO PRN ×2 (10:56→19:20)
[2018-07-07] MEDS: CYCLOBENZAPRINE HCL 5 MG TABLET PO PRN (10:56)
[2018-07-07] MEDS: PRENATAL VITAMINS W/ FOLIC ACID TABLET (FP) PO SCH (10:56)
[2018-07-07] MEDS: ATORVASTATIN CA 40 MG TABLET (FP) PO SCH (10:56)
[2018-07-07] MEDS: NICOTINE 14 MG/24 HOURS TOPICAL PATCH TD SCH (10:57)
[2018-07-07] MEDS: LORATADINE 10 MG TABLET PO SCH (10:58)
[2018-07-07] MEDS: chlordiazePOXIDE HCL 25 MG CAPSULE PO PRN (13:45)
[2018-07-07] MEDS: chlordiazePOXIDE HCL 10 MG CAPSULE PO SCH ×2 (18:25→23:09)
[2018-07-07] MEDS: QUEtiapine FUMARATE 100 MG TABLET (FP) PO SCH (23:09)
[2018-07-07] MEDS: THIAMINE HCL 100 MG TABLET (FP) PO SCH (23:13)
[2018-07-08] MEDS: chlordiazePOXIDE HCL 10 MG CAPSULE PO SCH ×2 (05:27→10:24)
[2018-07-08] MEDS: PANTOPRAZOLE 40 MG TABLET (FP) PO SCH (05:27)
[2018-07-08] MEDS: ONDANSETRON *ODT* 4 MG TABLET SL PRN (09:02)
[2018-07-08] MEDS: DIPHENOXYLATE 2.5/ATROPINE.025 1 COMBO TABLET PO PRN (09:17)
[2018-07-08] MEDS ORDERED: QUEtiapine FUMARATE 25 MG TABLET (FP) PO ONE (09:39)
--- NOTE | 2018-07-08 09:43 | PN ---
Psychiatric Progress Note Vital Signs: Vital Signs Period Temp Pulse Resp BP Sys/Murillo Pulse Ox Last 24 Hr 97.0 F-100.2 F 69-76 16-18 98-158/53-87 Date of Session: 07/08/18 Chief Complaint:: " I get anxious and i lash out." Current Medications: Active Medications Generic Name Dose Route Start Last Admin Trade Name Freq PRN Reason Stop Dose Admin Acetaminophen 650 mg 07/04/18 13:59 07/05/18 06:10 Tylenol - PO 650 mg Q4H PRN Administration FEVER Al Hydroxide/Mg Hydroxide 30 ml 07/04/18 13:59 07/04/18 18:12 Mylanta Oral Suspension - PO 30 ml Q6H PRN Administration DYSPEPSIA Albuterol Sulfate 2 puff 07/04/18 14:04 07/05/18 06:09 Ventolin Hfa Inhaler - IH 2 puff Q4H PRN Administration SHORT OF BREATH/WHEEZING Albuterol/Ipratropium 1 amp 07/04/18 14:09 07/05/18 06:14 Duoneb - NEB 1 amp Q6H PRN Administration SHORTNESS OF BREATH Aspirin 81 mg 07/05/18 10:00 07/07/18 10:56 Asa - PO 81 mg DAILY JUN Administration Atorvastatin Calcium 40 mg 07/05/18 10:00 07/07/18 10:56 Lipitor - PO 40 mg DAILY JUN Administration Chlordiazepoxide HCl 10 mg 07/07/18 17:00 07/08/18 05:27 Librium - PO 07/08/18 11:01 10 mg [id number] JUN Administration Cyclobenzaprine HCl 5 mg 07/04/18 14:57 07/07/18 10:56 Cyclobenzaprine Hcl PO 5 mg TID PRN Administration BACK PAIN Diphenoxylate HCl/Atropine 1 combo 07/06/18 16:34 07/08/18 09:17 Lomotil - PO 07/09/18 16:33 1 combo Q8H PRN Administration DIARRHEA Enalapril Maleate 5 mg 07/05/18 10:00 07/07/18 23:09 Vasotec - PO 5 mg BID JUN Administration Eucalyptus/Menthol/Phenol/Sorbitol 1 each 07/04/18 13:59 07/05/18 06:10 Cepastat Lozenge - MM 1 each Q4H PRN Administration SORE THROAT Guaifenesin 10 ml 07/04/18 13:59 Robitussin Dm - PO Q6H PRN COUGH Ibuprofen 400 mg 07/04/18 13:59 Motrin - PO Q6H PRN PAIN LEVEL 4-6 Loratadine 10 mg 07/05/18 10:00 07/07/18 10:58 Claritin - PO 10 mg DAILY JUN Administration Magnesium Citrate 300 ml 07/04/18 13:59 Citroma - PO Q48H PRN CONSTIPATION Magnesium Hydroxide 30 ml 07/04/18 13:59 Milk Of Magnesia - PO DAILY PRN CONSTIPATION Melatonin 5 mg 07/04/18 22:00 07/06/18 22:19 Melatonin PO 5 mg HS PRN Administration INSOMNIA Methadone HCl 5 mg 07/09/18 06:00 Dolophine - PO 07/09/18 06:01 DAILY@0600 JUN Methadone HCl 10 mg 07/08/18 10:00 Dolophine - PO 07/08/18 10:01 DAILY [facility] Metoprolol Succinate 50 mg 07/07/18 10:00 07/07/18 10:56 Toprol Xl - PO 50 mg DAILY JUN Administration Nicotine 14 mg 07/05/18 10:00 07/07/18 10:57 Nicoderm Patch - TD 14 mg DAILY JUN Administration Nicotine Polacrilex 2 mg 07/04/18 13:59 Nicorette Gum - BUC Q2H PRN NICOTINE REPLACEMENT RX Ondansetron HCl 4 mg 07/06/18 10:53 07/08/18 09:02 Zofran Odt - SL 4 mg Q8H PRN Administration NAUSEA AND/OR VOMITING Pantoprazole Sodium 40 mg 07/07/18 06:00 07/08/18 05:27 Protonix - PO 40 mg DAILY@0600 JUN Administration Multivit/Folic Acid/Iron 1 tab 07/05/18 10:00 07/07/18 10:56 Vitamins (Sjr) - PO 1 tab DAILY JUN Administration Pseudoephedrine/Triprolidine 1 combo 07/04/18 13:59 07/05/18 06:10 Actifed - PO 1 combo TID PRN Administration NASAL CONGESTION Quetiapine Fumarate 100 mg 07/05/18 22:00 07/07/18 23:09 Seroquel - PO 100 mg HS JUN Administration Quetiapine Fumarate 25 mg 07/08/18 09:39 Seroquel - PO 07/08/18 09:40 ONCE ONE Thiamine HCl 100 mg 07/04/18 22:00 07/07/18 23:13 Vitamin B1 - PO Not Given HS [facility] Provider note:: Dr. Duffy note read and appreciated. Patient irritable this moring. Observed yelling at nursing staff and having difficulty following directions. Patient reports worsening anxiety and irritability this morning because of her withdrawals. Medications reviewed. Will order one time dose of seroquel 25mg and vistaril 25mg q4h for agitation. Benefits and side effects discussed. Verbal consent given. Total face to face time:: 25 Mental Status Exam - Mental Status Exam Alert and Oriented to: Time, Place, Person Cognitive Function: Good Patient Appearance: Well Groomed Mood: Irritable Affect: Mood Congruent Patient Behavior: Agitated Speech Pattern: Clear Voice Loudness: Normal Thought Process: Intact, Goal Oriented Thought Disorder: Not Present Hallucinations: Denies Suicidal Ideation: Denies Homicidal Ideation: Denies Insight/Judgement: Poor Sleep: Fair Appetite: Fair Muscle strength/Tone: Normal Gait/Station: Normal Psychiatric Treatment Plan - Problem List (1) Alcohol dependence with withdrawal Current Visit: Yes (2) Opioid dependence with withdrawal Current Visit: Yes (3) Cannabis dependence Current Visit: Yes (4) Nicotine dependence Current Visit: Yes Qualifiers: Nicotine product type: cigarettes Substance use status: in withdrawal Qualified Code(s): F17.213 - Nicotine dependence, cigarettes, with withdrawal (5) Schizoaffective disorder Current Visit: Yes Qualifiers: Schizoaffective disorder type: bipolar Qualified Code(s): F25.0 - Schizoaffective disorder, bipolar type (6) Substance induced mood disorder Current Visit: Yes
--- NOTE | 2018-07-08 09:55 | PN ---
S Progress Note (SOAP) Subjective: alert,diarrhea,no vomiting,on lomotil,stool for c diff pending,will d/c ensure , did not want to be on maisha diet, ambulation,anxious Objective: 07/08/18 09:53 Vital Signs Temperature 97.8 F 07/08/18 09:14 Pulse Rate 69 07/08/18 09:14 Respiratory Rate 18 07/08/18 09:14 Blood Pressure 102/60 07/08/18 09:14 O2 Sat by Pulse Oximetry (%) Assessment: 07/08/18 09:54 withdrawal symptom Plan: continue detox,d/c ensure,encourage oral fluid,repeat cbc,cmp in am
[2018-07-08] MEDS ORDERED: METHADONE HCL 10 MG TABLET (FOR DETOX USE ONLY) PO SCH (10:00)
[2018-07-08] MEDS: CYCLOBENZAPRINE HCL 5 MG TABLET PO PRN ×3 (10:24→22:13)
[2018-07-08] MEDS: ATORVASTATIN CA 40 MG TABLET (FP) PO SCH (10:24)
[2018-07-08] MEDS: PRENATAL VITAMINS W/ FOLIC ACID TABLET (FP) PO SCH (10:24)
[2018-07-08] MEDS: ASPIRIN 81 MG CHEWABLE TABLETS PO SCH (10:24)
[2018-07-08] MEDS: ENALAPRIL MALEATE 5 MG TABLET (FP) PO SCH ×2 (10:25→22:13)
[2018-07-08] MEDS: NICOTINE 14 MG/24 HOURS TOPICAL PATCH TD SCH (10:25)
[2018-07-08] MEDS: LORATADINE 10 MG TABLET PO SCH (10:25)
--- NOTE | 2018-07-08 11:30 | PN ---
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
--- NOTE | 2018-07-08 12:26 | PN ---
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
[2018-07-08] MEDS: hydrOXYzine PAMOATE 25 MG CAPSULE (FP) PO PRN ×3 (12:30→22:13)
[2018-07-08] MEDS: metroNIDAZOLE 250 MG TABLET PO SCH ×2 (14:12→22:12)
[2018-07-08] MEDS: QUEtiapine FUMARATE 100 MG TABLET (FP) PO SCH (22:13)
[2018-07-08] MEDS: THIAMINE HCL 100 MG TABLET (FP) PO SCH (22:13)
[2018-07-09] MEDS ORDERED: METHADONE HCL 5 MG TABLET (FOR DETOX USE ONLY) PO SCH (06:00)
[2018-07-09] MEDS: metroNIDAZOLE 250 MG TABLET PO SCH (07:10)
[2018-07-09] MEDS: PANTOPRAZOLE 40 MG TABLET (FP) PO SCH (07:10)
[2018-07-09] MEDS: hydrOXYzine PAMOATE 25 MG CAPSULE (FP) PO PRN (07:12)
[2018-07-09 08:39] VITALS: BP 88/54; PULSE 59; TEMP 97.9
--- NOTE | 2018-07-09 08:53 | PN ---
S Progress Note (SOAP) Subjective: alert,no complaint,no diarrhea,no vomiting,tolerate diet well,no complaint Objective: 07/09/18 09:20 bp 106/56,p64,r16,t98 Assessment: 07/09/18 09:21 patient felt much better,no diarrhea,tolerate diet well,did not want to wait for labs test today and result of stool test,did not want to give specimen for ova and parasite Plan: discharge in good condition,prescription to [facility],follow up with rehab in [place]
--- NOTE | 2018-07-09 09:29 | DS ---
[facility] Detox Discharge Summary Admission Date: 07/04/18 Discharge Date: 07/09/18 - History Present History: Alcohol Dependence, Opioid Dependence Additional Comments: patient is stable for discharge today,stool for c difficile is negative,follow up with rehab [place],prescription to [place] Pertinent Past History: asthma hypertension cad hyperlipidemioa - Physical Exam Results Vital Signs: Vital Signs Temperature 97.9 F 07/09/18 08:38 Pulse Rate 59 L 07/09/18 08:38 Respiratory Rate 16 07/09/18 08:38 Blood Pressure 88/54 L 07/09/18 08:38 O2 Sat by Pulse Oximetry (%) - Treatment Hospital Course: Detox Protocol Followed, Detoxed Safely, Responded well, Discharged Condition Good, Rehab Referral Accepted Patient has Accepted a Rehab Referral to: [place] - Medication Discharge Medications: Ambulatory Orders Loratadine [Claritin -] 10 mg PO DAILY 01/31/18 Tenofovir Alafenamide Fumarate [Vemlidy] 25 mg PO DAILY 01/31/18 Quetiapine Fumarate [Seroquel] 100 mg PO BID 02/02/18 Enalapril Maleate [Vasotec -] 5 mg PO DAILY #30 tablet 02/06/18 Gabapentin [Neurontin -] 800 mg PO DAILY #30 capsule 02/06/18 Metoprolol Succinate [Toprol XL -] 25 mg PO DAILY #30 tab.sr.24h 02/06/18 Ranitidine [Zantac -] 150 mg PO DAILY 07/04/18 Aspirin [ASA -] 81 mg PO DAILY #30 tab.chew 07/09/18 Atorvastatin Ca [Lipitor] 40 mg PO DAILY #30 tablet 07/09/18 Pantoprazole Sodium [Protonix -] 40 mg PO DAILY@0600 #10 tablet.ec 07/09/18 metroNIDAZOLE [Flagyl -] 500 mg PO TID #20 tablet 07/09/18 - Diagnosis (1) Alcohol dependence with withdrawal Current Visit: Yes Status: Acute (2) Opioid dependence with withdrawal Current Visit: Yes Status: Acute (3) Asthma Current Visit: Yes Status: Chronic Qualifiers: Asthma severity: mild Asthma persistence: intermittent Asthma complication type: with status asthmaticus Qualified Code(s): J45.22 - Mild intermittent asthma with status asthmaticus (4) CAD (coronary artery disease) Current Visit: Yes Status: Chronic (5) Cannabis dependence Current Visit: Yes Status: Chronic (6) HTN (hypertension) Current Visit: Yes Status: Chronic Qualifiers: Hypertension type: essential hypertension Qualified Code(s): I10 - Essential (primary) hypertension (7) Hyperlipidemia Current Visit: Yes Status: Chronic Qualifiers: Hyperlipidemia type: pure hypercholesterolemia Qualified Code(s): E78.00 - Pure hypercholesterolemia, unspecified; E78.0 - Pure hypercholesterolemia (8) Nicotine dependence Current Visit: Yes Status: Chronic Qualifiers: Nicotine product type: cigarettes Substance use status: in withdrawal Qualified Code(s): F17.213 - Nicotine dependence, cigarettes, with withdrawal (9) Schizoaffective disorder Current Visit: Yes Status: Chronic Qualifiers: Schizoaffective disorder type: bipolar Qualified Code(s): F25.0 - Schizoaffective disorder, bipolar type (10) Diarrhea Current Visit: Yes Status: Acute - AMA Did Patient Leave Against Medical Advice: No
[2018-07-09 11:25] LABS: ALBUMIN 3.1 g/dl (3.4-5.0); ALK PHOS 140 U/L (45-117); ANION GAP 5 MMOL/L (8-16); BILIRUBIN,TOTAL 0.3 mg/dL (0.2-1); BLOOD UREA NITROGEN 10 mg/dL (7-18); CALCIUM 8.2 mg/dL (8.5-10.1); CHLORIDE 108 mmol/L (98-107); CO2 28 mmol/L (21-32); CREATININE 0.9 mg/dL (0.55-1.3); GLUCOSE,RANDOM 118 mg/dL (74-106); POTASSIUM 4.5 mmol/L (3.5-5.1); SGOT/AST 50 U/L (15-37); SGPT/ALT 61 U/L (13-61); SODIUM 141 mmol/L (136-145); TOT PROT 6.2 g/dl (6.4-8.2)
[2018-07-09 11:29] LABS: HEMATOCRIT 41.4 % (32.4-45.2); HEMOGLOBIN 14.4 GM/dL (10.7-15.3); MCH 34.5 pg (25.7-33.7); MCHC 34.7 g/dl (32.0-36.0); MEAN CELL VOLUME 99.4 fl (80-96); MEAN PLT VOLUME 10.3 fl (7.5-11.1); PLATELET COUNT 137 K/MM3 (134-434); RBC 4.17 M/mm3 (3.60-5.2); RDW 14.8 % (11.6-15.6)
== END 2018-07-09 09:30 | disposition home or self-care (01) | DRG 773 ==
LOC: YASAS 11:01 → Y3N 14:05 → Y3E 07-05 21:04 → Y6N 07-05 21:08
PROVIDERS: ADMIT Surgery; ATTEND Surgery
PROC: HZ2ZZZZ Detoxification Services for Substance Abuse Treatment (ICD-10-PCS; principal; 2018-07-04)
DX: F11.23 Opioid dependence with withdrawal (principal); F10.230 Alcohol dependence with withdrawal, uncomplicated; F12.20 Cannabis dependence, uncomplicated; F17.213 Nicotine dependence, cigarettes, with withdrawal; F25.0 Schizoaffective disorder, bipolar type; F19.24 Other psychoactive substance dependence with psychoactive substance-induced mood disorder; I10 Essential (primary) hypertension; J45.22 Mild intermittent asthma with status asthmaticus; I25.10 Atherosclerotic heart disease of native coronary artery without angina pectoris; E78.5 Hyperlipidemia, unspecified; R19.7 Diarrhea, unspecified; G47.00 Insomnia, unspecified; K21.9 Gastro-esophageal reflux disease without esophagitis; B18.2 Chronic viral hepatitis C; B18.1 Chronic viral hepatitis B without delta-agent; Z86.73 Personal history of transient ischemic attack (TIA), and cerebral infarction without residual deficits; Z91.19 Patient's noncompliance with other medical treatment and regimen; Z88.2 Allergy status to sulfonamides; Z95.5 Presence of coronary angioplasty implant and graft
CPT/HCPCS: 36415; 80053; 81003; 85027; 86593; 87324; 87449; 94640; J0735; Q0162

== ENCOUNTER 2019-01-11 10:36 | Inpatient (IN) | payer OTHER ==
[2019-01-11 11:28] VITALS: BMI 18.4
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
[2019-01-11] MEDS ORDERED: MENTHOL/PHENOL 1 EACH UD MM PRN (11:51)
[2019-01-11] MEDS ORDERED: MAG HYDROX/AL HYDROX/SIMETH 30 ML UNIT-DOSE CUP PO PRN (11:51)
[2019-01-11] MEDS ORDERED: BISMUTH SUBSALICYLATE 262 MG/15 ML BTL PO PRN (11:51)
[2019-01-11] MEDS ORDERED: MAGNESIUM CITRATE 300 ML BOTTLE PO PRN (11:51)
[2019-01-11] MEDS ORDERED: IBUPROFEN 400 MG TABLET (FP) PO PRN (11:51)
[2019-01-11] MEDS ORDERED: ACETAMINOPHEN 325 MG TABLET (FP) PO PRN ×2 (11:51)
[2019-01-11] MEDS ORDERED: MAGNESIUM HYDROX 2400MG/30ML ORAL SUSPENSION 30 ML CUP PO PRN (11:51)
[2019-01-11] MEDS ORDERED: ALBUTEROL SO4 8 GM HFA INHALER IH PRN (11:54)
[2019-01-11] MEDS ORDERED: ONDANSETRON *ODT* 4 MG TABLET SL PRN (11:54)
[2019-01-11] MEDS ORDERED: TENOFOVIR ALAFENAMIDE FUMARATE 25 MG PO SCH (12:00)
[2019-01-11] MEDS ORDERED: cloNIDine HCL 0.1 MG TABLET PO PRN (13:02)
--- NOTE | 2019-01-11 13:08 | PN ---
[facility] Progress Note Note: patient is heroin dependence,alcohol dependence with ccoaine abused,need inpatient detox,medicaloly managed,methadone and librium regimen
[2019-01-11] MEDS ORDERED: METHADONE HCL 10 MG TABLET (FOR DETOX USE ONLY) PO ONE (13:30)
--- NOTE | 2019-01-11 13:41 | EKG ---
Test Reason : Blood Pressure : / mmHG Vent. Rate : 057 BPM Atrial Rate : 057 BPM P-R Int : 120 ms QRS Dur : 088 ms QT Int : 434 ms P-R-T Axes : 045 060 016 degrees QTc Int : 422 ms SINUS BRADYCARDIA OTHERWISE NORMAL ECG WHEN COMPARED WITH ECG OF 01-FEB-2018 01:16, PREMATURE VENTRICULAR COMPLEXES ARE NO LONGER PRESENT Confirmed by KRZYSZTOF CALDWELL MD ([id number]) on 01/11/2019 1:40:45 PM Referred By: Confirmed By:KRZYSZTOF CALDWELL MD
[2019-01-11] MEDS: NICOTINE 14 MG/24 HOURS TOPICAL PATCH TD SCH (14:08)
[2019-01-11] MEDS: ASPIRIN 81 MG CHEWABLE TABLETS PO SCH (14:09)
[2019-01-11] MEDS: PANTOPRAZOLE 40 MG TABLET (FP) PO SCH (14:09)
[2019-01-11] MEDS: ATORVASTATIN CA 40 MG TABLET (FP) PO SCH (14:09)
[2019-01-11] MEDS: metoPROLOL SUCCINATE 25 MG TAB.SR.24H (FP) PO SCH (14:09)
[2019-01-11] MEDS: CLOPIDOGREL BISULFATE 75 MG TABLET (FP) PO SCH (14:09)
[2019-01-11 14:30] LABS: HEMATOCRIT 43.5 % (32.4-45.2); HEMOGLOBIN 14.4 GM/dL (10.7-15.3); MCH 32.6 pg (25.7-33.7); MCHC 33.2 g/dl (32.0-36.0); MEAN CELL VOLUME 98.3 fl (80-96); MEAN PLT VOLUME 10.1 fl (7.5-11.1); PLATELET COUNT 146 K/MM3 (134-434); RBC 4.42 M/mm3 (3.60-5.2); RDW 16.1 % (11.6-15.6); WHITE BLOOD COUNT 7.2 K/mm3 (4.0-10.0)
[2019-01-11] MEDS: ENALAPRIL MALEATE 5 MG TABLET (FP) PO SCH (14:34)
[2019-01-11 14:37] LABS: ALBUMIN 4.1 g/dl (3.4-5.0); BILIRUBIN,TOTAL 0.9 mg/dL (0.2-1); BLOOD UREA NITROGEN 16.7 mg/dL (7-18); CREATININE 0.7 mg/dL (0.55-1.3); POTASSIUM 3.6 mmol/L (3.5-5.1); TOT PROT 7.3 g/dl (6.4-8.2)
[2019-01-11] MEDS: chlordiazePOXIDE HCL 25 MG CAPSULE PO SCH ×2 (17:13→22:09)
[2019-01-11] MEDS: THIAMINE HCL 100 MG TABLET (FP) PO SCH (22:08)
[2019-01-11] MEDS: MELATONIN 5 MG TABLETS PO PRN (22:09)
[2019-01-12] MEDS: chlordiazePOXIDE HCL 25 MG CAPSULE PO SCH ×4 (05:41→22:13)
[2019-01-12] MEDS: PANTOPRAZOLE 40 MG TABLET (FP) PO SCH (06:41)
[2019-01-12] MEDS ORDERED: METHADONE HCL 5 MG TABLET (FOR DETOX USE ONLY) PO ONE (10:00)
[2019-01-12] MEDS: PRENATAL VITAMINS W/ FOLIC ACID TABLET (FP) PO SCH (10:45)
[2019-01-12] MEDS: metoPROLOL SUCCINATE 25 MG TAB.SR.24H (FP) PO SCH (10:45)
[2019-01-12] MEDS: RANITIDINE HCL 150 MG TABLET (FP) PO SCH (10:45)
[2019-01-12] MEDS: ENALAPRIL MALEATE 5 MG TABLET (FP) PO SCH (10:45)
[2019-01-12] MEDS: ATORVASTATIN CA 40 MG TABLET (FP) PO SCH (10:45)
[2019-01-12] MEDS: CLOPIDOGREL BISULFATE 75 MG TABLET (FP) PO SCH (10:45)
[2019-01-12] MEDS: ASPIRIN 81 MG CHEWABLE TABLETS PO SCH (10:45)
[2019-01-12] MEDS: NICOTINE 14 MG/24 HOURS TOPICAL PATCH TD SCH (10:46)
[2019-01-12] MEDS: MIRTAZAPINE 15 MG TABLET (FP) PO SCH (10:47)
--- NOTE | 2019-01-12 11:35 | PN ---
S CIWA - CIWA Score Nausea/Vomitin-Mild Nausea/No Vomiting Muscle Tremors: 3 Anxiety: 3 Agitation: 3 Paroxysmal Sweats: 2 Orientation: 0-Oriented Tacttile Disturbances: 0-None Auditory Disturbances: 0-None Visual Disturbances: 0-None Headache: 2-Mild CIWA-Ar Total Score: 14 S COWS - Scale Resting Pulse: 0= [place] 80 or Below Sweatin= Chills/Flushing Restless Observation: 0= Sits Still Pupil Size: 0= Normal to Room Light Bone or Joint Aches: 1= Mild Discomfort Runny Nose/ Eye Tearin= Nasal Congestion GI Upset > 30mins: 2= Nausea/Diarrhea Tremor Observation of Outstretched Hands: 2= Slight Tremor Visible Yawning Observation: 2= >3x During Session Anxiety or Irritability: 2=Irritable/Anxious Goose Flesh Skin: 3=Piloerection COWS Score: 14 S Progress Note (SOAP) Subjective: 48 years old female admitted on 01/11/19 for acute alcohol and opiate withdrawal sx management doing well with librium and methadone detox regimen had mild verbal altercation with roommate today counselor and director underwriter sales meet with the patient discuss self control and gal oriented detox stay patient regain self control able to contract for safety of self and others Objective: 01/12/19 11:35 Vital Signs Temperature 98.1 F 01/12/19 09:24 Pulse Rate 62 01/12/19 09:24 Respiratory Rate 18 01/12/19 09:24 Blood Pressure 146/87 01/12/19 09:24 O2 Sat by Pulse Oximetry (%) Laboratory Last Values WBC 7.2 K/mm3 (4.0-10.0) 01/11/19 12:15 RBC 4.42 M/mm3 (3.60-5.2) 01/11/19 12:15 Hgb 14.4 GM/dL (10.7-15.3) 01/11/19 12:15 Hct 43.5 % (32.4-45.2) 01/11/19 12:15 MCV 98.3 fl (80-96) H 01/11/19 12:15 MCH 32.6 pg (25.7-33.7) 01/11/19 12:15 MCHC 33.2 g/dl (32.0-36.0) 01/11/19 12:15 RDW 16.1 % (11.6-15.6) H 01/11/19 12:15 Plt Count 146 K/MM3 (134-434) 01/11/19 12:15 MPV 10.1 fl (7.5-11.1) 01/11/19 12:15 Sodium 142 mmol/L (136-145) 01/11/19 12:15 Potassium 3.6 mmol/L (3.5-5.1) 01/11/19 12:15 Chloride 108 mmol/L (98-107) H 01/11/19 12:15 Carbon Dioxide 29 mmol/L (21-32) 01/11/19 12:15 Anion Gap 5 MMOL/L (8-16) L 01/11/19 12:15 BUN 16.7 mg/dL (7-18) 01/11/19 12:15 Creatinine 0.7 mg/dL (0.55-1.3) 01/11/19 12:15 Est GFR (CKD-EPI)AfAm 118.74 01/11/19 12:15 Est GFR (CKD-EPI)NonAf 102.45 01/11/19 12:15 Random Glucose 89 mg/dL (74-106) 01/11/19 12:15 Calcium 9.0 mg/dL (8.5-10.1) 01/11/19 12:15 Total Bilirubin 0.9 mg/dL (0.2-1) 01/11/19 12:15 AST 99 U/L (15-37) H 01/11/19 12:15 ALT 108 U/L (13-61) H 01/11/19 12:15 Alkaline Phosphatase 128 U/L (45-117) H 01/11/19 12:15 Total Protein 7.3 g/dl (6.4-8.2) 01/11/19 12:15 Albumin 4.1 g/dl (3.4-5.0) 01/11/19 12:15 RPR Titer Nonreactive (NONREACTIVE) 01/11/19 12:15 lab noted Assessment: 01/12/19 11:35 alcohol and opiate withdrawal sx 01/12/19 11:36 alert ambulating on hallway trouble sleep at night appears restlessness follow verbal requesting able to calm down Plan: continue librium and methadone detox regimen
[2019-01-12] MEDS: QUEtiapine FUMARATE 50 MG TABLET PO SCH (22:13)
[2019-01-12] MEDS: THIAMINE HCL 100 MG TABLET (FP) PO SCH (22:13)
[2019-01-12] MEDS: MELATONIN 5 MG TABLETS PO PRN (23:27)
[2019-01-13] MEDS: PANTOPRAZOLE 40 MG TABLET (FP) PO SCH (06:03)
[2019-01-13] MEDS: chlordiazePOXIDE HCL 25 MG CAPSULE PO SCH ×4 (06:03→22:05)
[2019-01-13] MEDS ORDERED: METHADONE HCL 10 MG TABLET (FOR DETOX USE ONLY) PO ONE (10:00)
[2019-01-13] MEDS: ATORVASTATIN CA 40 MG TABLET (FP) PO SCH (10:16)
[2019-01-13] MEDS: ASPIRIN 81 MG CHEWABLE TABLETS PO SCH (10:16)
[2019-01-13] MEDS: ENALAPRIL MALEATE 5 MG TABLET (FP) PO SCH (10:16)
[2019-01-13] MEDS: CLOPIDOGREL BISULFATE 75 MG TABLET (FP) PO SCH (10:16)
[2019-01-13] MEDS: metoPROLOL SUCCINATE 25 MG TAB.SR.24H (FP) PO SCH (10:16)
[2019-01-13] MEDS: MIRTAZAPINE 15 MG TABLET (FP) PO SCH (10:16)
[2019-01-13] MEDS: RANITIDINE HCL 150 MG TABLET (FP) PO SCH (10:16)
[2019-01-13] MEDS: NICOTINE 14 MG/24 HOURS TOPICAL PATCH TD SCH (10:16)
[2019-01-13] MEDS: PRENATAL VITAMINS W/ FOLIC ACID TABLET (FP) PO SCH (10:17)
[2019-01-13] MEDS: LIDOCAINE 5% TOPICAL PATCH TP SCH (13:36)
[2019-01-13] MEDS: hydrOXYzine PAMOATE 25 MG CAPSULE (FP) PO PRN (15:28)
[2019-01-13] MEDS: chlordiazePOXIDE HCL 25 MG CAPSULE PO PRN ×2 (15:29→20:25)
--- NOTE | 2019-01-13 16:53 | PN ---
S CIWA - CIWA Score Nausea/Vomitin-No Nausea/No Vomiting Muscle Tremors: 2 Anxiety: 4-Mod. Anxious/Guarded Agitation: 4-Moderately Restless Paroxysmal Sweats: 2 Orientation: 0-Oriented Tacttile Disturbances: 0-None Auditory Disturbances: 0-None Visual Disturbances: 1-Very Mild Sensitivity Headache: 0-None Present CIWA-Ar Total Score: 13 S COWS - Scale Resting Pulse: 0= [place] 80 or Below Sweatin= Chills/Flushing Restless Observation: 1= Difficult to Sit Still Pupil Size: 0= Normal to Room Light Bone or Joint Aches: 4=Acute Joint/Muscle Pain Runny Nose/ Eye Tearin= None GI Upset > 30mins: 0= None Tremor Observation of Outstretched Hands: 0= None Yawning Observation: 1= 1-2x During Session Anxiety or Irritability: 4=Extreme Anxiety Goose Flesh Skin: 3=Piloerection COWS Score: 14 S Progress Note (SOAP) Subjective: Body Aches, Anxious, Restless, Interrupted Sleep. Objective: PATIENT PATIENT A & O X 3, OBSERVED AMBULATING ON UNIT UNASSISTED. IN NO ACUTE DISTRESS. 01/13/19 16:54 Laboratory Tests 01/11/19 01/11/19 01/11/19 12:15 12:15 12:15 WBC 7.2 RBC 4.42 Hgb 14.4 Hct 43.5 MCV 98.3 H MCH 32.6 MCHC 33.2 RDW 16.1 H Plt Count 146 MPV 10.1 Sodium 142 Potassium 3.6 Chloride 108 H Carbon Dioxide 29 Anion Gap 5 L BUN 16.7 Creatinine 0.7 Est GFR (CKD-EPI)AfAm 118.74 Est GFR (CKD-EPI)NonAf 102.45 Random Glucose 89 Calcium 9.0 Total Bilirubin 0.9 AST 99 H ALT 108 H Alkaline Phosphatase 128 H Total Protein 7.3 Albumin 4.1 POC Urine HCG, Qual RPR Titer Nonreactive 01/11/19 12:17 WBC RBC Hgb Hct MCV MCH MCHC RDW Plt Count MPV Sodium Potassium Chloride Carbon Dioxide Anion Gap BUN Creatinine Est GFR (CKD-EPI)AfAm Est GFR (CKD-EPI)NonAf Random Glucose Calcium Total Bilirubin AST ALT Alkaline Phosphatase Total Protein Albumin POC Urine HCG, Qual Negative RPR Titer LABS NOTED. PATIENT HAS HAD ELEVATED LIVER ENZYME LEVELS ON PREVIOUS ADMISSIONS. 01/13/19 16:56 Assessment: 01/13/19 16:54 WITHDRAWAL SYMPTOMS. ELEVATED LIVER ENZYMES. 01/13/19 16:56 Plan: CONTINUE DETOX. LIDODERM PATCH FOR LOWER BACK PAIN.
[2019-01-13] MEDS ORDERED: hydrOXYzine PAMOATE 50 MG CAPSULE (FP) PO ONE (20:15)
[2019-01-13] MEDS: QUEtiapine FUMARATE 50 MG TABLET PO SCH (22:05)
[2019-01-13] MEDS: MELATONIN 5 MG TABLETS PO PRN (22:05)
[2019-01-13] MEDS: THIAMINE HCL 100 MG TABLET (FP) PO SCH (22:05)
[2019-01-13] MEDS: LIDOCAINE PATCH REMOVAL MC SCH (22:05)
[2019-01-14] MEDS ORDERED: chlordiazePOXIDE HCL 10 MG CAPSULE PO PRN
[2019-01-14] MEDS ORDERED: METHADONE HCL 5 MG TABLET (FOR DETOX USE ONLY) PO ONE (06:00)
[2019-01-14] MEDS: chlordiazePOXIDE HCL 10 MG CAPSULE PO SCH ×4 (08:03→22:19)
[2019-01-14] MEDS: PANTOPRAZOLE 40 MG TABLET (FP) PO SCH (08:07)
[2019-01-14] MEDS: RANITIDINE HCL 150 MG TABLET (FP) PO SCH (10:21)
[2019-01-14] MEDS: CLOPIDOGREL BISULFATE 75 MG TABLET (FP) PO SCH (10:21)
[2019-01-14] MEDS: ATORVASTATIN CA 40 MG TABLET (FP) PO SCH (10:21)
[2019-01-14] MEDS: MIRTAZAPINE 15 MG TABLET (FP) PO SCH (10:21)
[2019-01-14] MEDS: PRENATAL VITAMINS W/ FOLIC ACID TABLET (FP) PO SCH (10:21)
[2019-01-14] MEDS: metoPROLOL SUCCINATE 25 MG TAB.SR.24H (FP) PO SCH (10:21)
[2019-01-14] MEDS: ASPIRIN 81 MG CHEWABLE TABLETS PO SCH (10:21)
[2019-01-14] MEDS: NICOTINE 14 MG/24 HOURS TOPICAL PATCH TD SCH (10:22)
[2019-01-14] MEDS: ENALAPRIL MALEATE 5 MG TABLET (FP) PO SCH (10:22)
[2019-01-14] MEDS: LIDOCAINE 5% TOPICAL PATCH TP SCH (10:22)
[2019-01-14] MEDS: hydrOXYzine PAMOATE 25 MG CAPSULE (FP) PO PRN ×2 (10:57→15:46)
[2019-01-14] MEDS ORDERED: NICOTINE POLACRILEX 2 MG GUM BUC PRN (11:00)
--- NOTE | 2019-01-14 12:14 | PN ---
[facility] CIWA - CIWA Score Nausea/Vomitin-No Nausea/No Vomiting Muscle Tremors: None Anxiety: 3 Agitation: 2 Paroxysmal Sweats: 3 Orientation: 0-Oriented Tacttile Disturbances: 0-None Auditory Disturbances: 0-None Visual Disturbances: 0-None Headache: 2-Mild CIWA-Ar Total Score: 10 S COWS - Scale Resting Pulse: 0= [place] 80 or Below Sweatin= Beads of Sweat on Face Restless Observation: 1= Difficult to Sit Still Pupil Size: 0= Normal to Room Light Bone or Joint Aches: 2= Severe Diffuse Aches Runny Nose/ Eye Tearin= None GI Upset > 30mins: 0= None Tremor Observation of Outstretched Hands: 0= None Yawning Observation: 1= 1-2x During Session Anxiety or Irritability: 2=Irritable/Anxious Goose Flesh Skin: 0=Smooth Skin COWS Score: 9 [facility] Progress Note (SOAP) Subjective: c/o sweats, muscle pain, anxiety/irritability. Objective: 01/14/19 12:13 Vital Signs 01/14/19 01/14/19 01/14/19 04:38 06:00 10:00 Temperature 96.1 F L 98.6 F Pulse Rate 66 68 Respiratory 18 18 18 Rate Blood Pressure 127/81 151/93 Lab Results WBC 7.2 K/mm3 (4.0-10.0) 01/11/19 12:15 RBC 4.42 M/mm3 (3.60-5.2) 01/11/19 12:15 Hgb 14.4 GM/dL (10.7-15.3) 01/11/19 12:15 Hct 43.5 % (32.4-45.2) 01/11/19 12:15 MCV 98.3 fl (80-96) H 01/11/19 12:15 MCHC 33.2 g/dl (32.0-36.0) 01/11/19 12:15 RDW 16.1 % (11.6-15.6) H 01/11/19 12:15 Plt Count 146 K/MM3 (134-434) 01/11/19 12:15 Sodium 142 mmol/L (136-145) 01/11/19 12:15 Potassium 3.6 mmol/L (3.5-5.1) 01/11/19 12:15 Chloride 108 mmol/L (98-107) H 01/11/19 12:15 Carbon Dioxide 29 mmol/L (21-32) 01/11/19 12:15 Anion Gap 5 MMOL/L (8-16) L 01/11/19 12:15 BUN 16.7 mg/dL (7-18) 01/11/19 12:15 Creatinine 0.7 mg/dL (0.55-1.3) 01/11/19 12:15 Random Glucose 89 mg/dL (74-106) 01/11/19 12:15 Calcium 9.0 mg/dL (8.5-10.1) 01/11/19 12:15 Labs noted. Assessment: 01/14/19 12:14 AOX3, in no acute respiratory distress. Full ROM, ambulating in the unit. Withdrawal symptoms. Plan: continue detox.
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
[2019-01-14] MEDS: METHOCARBAMOL 500 MG TABLET PO PRN (19:17)
[2019-01-14] MEDS: THIAMINE HCL 100 MG TABLET (FP) PO SCH (22:19)
[2019-01-14] MEDS: QUEtiapine FUMARATE 50 MG TABLET PO SCH (22:19)
[2019-01-14] MEDS: MELATONIN 5 MG TABLETS PO PRN (22:21)
[2019-01-15] MEDS: chlordiazePOXIDE HCL 10 MG CAPSULE PO SCH ×2 (06:23→17:14)
[2019-01-15] MEDS: PANTOPRAZOLE 40 MG TABLET (FP) PO SCH (06:24)
[2019-01-15] MEDS: hydrOXYzine PAMOATE 25 MG CAPSULE (FP) PO PRN ×3 (07:28→17:14)
[2019-01-15] MEDS: metoPROLOL SUCCINATE 25 MG TAB.SR.24H (FP) PO SCH (10:46)
[2019-01-15] MEDS: RANITIDINE HCL 150 MG TABLET (FP) PO SCH (10:46)
[2019-01-15] MEDS: PRENATAL VITAMINS W/ FOLIC ACID TABLET (FP) PO SCH (10:46)
[2019-01-15] MEDS: ATORVASTATIN CA 40 MG TABLET (FP) PO SCH (10:46)
[2019-01-15] MEDS: MIRTAZAPINE 15 MG TABLET (FP) PO SCH (10:46)
[2019-01-15] MEDS: ASPIRIN 81 MG CHEWABLE TABLETS PO SCH (10:46)
[2019-01-15] MEDS: CLOPIDOGREL BISULFATE 75 MG TABLET (FP) PO SCH (10:47)
[2019-01-15] MEDS: NICOTINE 14 MG/24 HOURS TOPICAL PATCH TD SCH (10:47)
[2019-01-15] MEDS: ENALAPRIL MALEATE 5 MG TABLET (FP) PO SCH (10:47)
[2019-01-15] MEDS: LIDOCAINE 5% TOPICAL PATCH TP SCH (10:47)
[2019-01-15] MEDS: METHOCARBAMOL 500 MG TABLET PO PRN ×2 (10:48→20:48)
[2019-01-15] MEDS: GABAPENTIN 100 MG CAPSULE (FP) PO SCH ×2 (13:13→22:29)
--- NOTE | 2019-01-15 16:46 | PN ---
[facility] CIWA - CIWA Score Nausea/Vomitin-No Nausea/No Vomiting Muscle Tremors: None Anxiety: 3 Agitation: 3 Paroxysmal Sweats: No Perspiration Orientation: 0-Oriented Tacttile Disturbances: 0-None Auditory Disturbances: 0-None Visual Disturbances: 0-None Headache: 0-None Present CIWA-Ar Total Score: 6 S COWS - Scale Resting Pulse: 0= [place] 80 or Below Sweatin= No chills or Flushing Restless Observation: 0= Sits Still Pupil Size: 0= Normal to Room Light Bone or Joint Aches: 0= None Runny Nose/ Eye Tearin= None GI Upset > 30mins: 0= None Tremor Observation of Outstretched Hands: 0= None Yawning Observation: 0= None Anxiety or Irritability: 2=Irritable/Anxious Goose Flesh Skin: 0=Smooth Skin COWS Score: 2 [facility] Progress Note (SOAP) Subjective: Back pain, cramps, sweating, chills, interrupted sleep; patient easily agitated Objective: 01/15/19 16:42 Last Vital Signs Temp Pulse Resp BP Pulse Ox 97.7 F 70 16 131/85 01/15/19 09:43 01/15/19 09:43 01/15/19 09:43 01/15/19 09:43 Elevated b/p, has htn (on meds) Laboratory Tests 01/11/19 01/11/19 01/11/19 12:15 12:15 12:15 WBC 7.2 RBC 4.42 Hgb 14.4 Hct 43.5 MCV 98.3 H MCH 32.6 MCHC 33.2 RDW 16.1 H Plt Count 146 MPV 10.1 Sodium 142 Potassium 3.6 Chloride 108 H Carbon Dioxide 29 Anion Gap 5 L BUN 16.7 Creatinine 0.7 Est GFR (CKD-EPI)AfAm 118.74 Est GFR (CKD-EPI)NonAf 102.45 Random Glucose 89 Calcium 9.0 Total Bilirubin 0.9 AST 99 H ALT 108 H Alkaline Phosphatase 128 H Total Protein 7.3 Albumin 4.1 POC Urine HCG, Qual RPR Titer Nonreactive 01/11/19 12:17 WBC RBC Hgb Hct MCV MCH MCHC RDW Plt Count MPV Sodium Potassium Chloride Carbon Dioxide Anion Gap BUN Creatinine Est GFR (CKD-EPI)AfAm Est GFR (CKD-EPI)NonAf Random Glucose Calcium Total Bilirubin AST ALT Alkaline Phosphatase Total Protein Albumin POC Urine HCG, Qual Negative RPR Titer Labs reviewed: elevated LFTs due to chronic substance use Assessment: 01/15/19 16:44 Withdrawal sxs Plan: Continue detox Encouraged PO water intake Scheduled for discharge tomorrow Gabapentin 100mg PO TID started for back pain (patient stated she takes gabapentin 300mg TID at home) Vistaril increased to 50mg PO q6hr prn for withdrawal sxs/anxiety
[2019-01-15] MEDS: THIAMINE HCL 100 MG TABLET (FP) PO SCH (22:29)
[2019-01-15] MEDS: LIDOCAINE PATCH REMOVAL MC SCH (22:29)
[2019-01-15] MEDS: MELATONIN 5 MG TABLETS PO PRN (22:29)
[2019-01-15] MEDS: QUEtiapine FUMARATE 50 MG TABLET PO SCH (22:29)
[2019-01-16] MEDS ORDERED: chlordiazePOXIDE HCL 10 MG CAPSULE PO ONE (05:00)
[2019-01-16] MEDS: PANTOPRAZOLE 40 MG TABLET (FP) PO SCH (05:11)
[2019-01-16] MEDS: GABAPENTIN 100 MG CAPSULE (FP) PO SCH (05:11)
[2019-01-16] MEDS: METHOCARBAMOL 500 MG TABLET PO PRN (05:14)
[2019-01-16 06:38] VITALS: BP 139/88; PULSE 64; TEMP 96.6
--- NOTE | 2019-01-16 09:41 | DS ---
[facility] Detox Discharge Summary Admission Date: 01/11/19 Discharge Date: 01/16/19 - History Present History: Alcohol Dependence, Cannabis Dependence, Cocaine Dependence, Opioid Dependence - Physical Exam Results Vital Signs: Vital Signs Temperature 96.6 F L 01/16/19 06:00 Pulse Rate 64 01/16/19 06:00 Respiratory Rate 18 01/16/19 06:00 Blood Pressure 139/88 01/16/19 06:00 O2 Sat by Pulse Oximetry (%) Pertinent Admission Physical Exam Findings: pt arrived in withdrawals Laboratory Tests 01/11/19 01/11/19 01/11/19 12:15 12:15 12:15 WBC 7.2 RBC 4.42 Hgb 14.4 Hct 43.5 MCV 98.3 H MCH 32.6 MCHC 33.2 RDW 16.1 H Plt Count 146 MPV 10.1 Sodium 142 Potassium 3.6 Chloride 108 H Carbon Dioxide 29 Anion Gap 5 L BUN 16.7 Creatinine 0.7 Est GFR (CKD-EPI)AfAm 118.74 Est GFR (CKD-EPI)NonAf 102.45 Random Glucose 89 Calcium 9.0 Total Bilirubin 0.9 AST 99 H ALT 108 H Alkaline Phosphatase 128 H Total Protein 7.3 Albumin 4.1 POC Urine HCG, Qual RPR Titer Nonreactive 01/11/19 12:17 WBC RBC Hgb Hct MCV MCH MCHC RDW Plt Count MPV Sodium Potassium Chloride Carbon Dioxide Anion Gap BUN Creatinine Est GFR (CKD-EPI)AfAm Est GFR (CKD-EPI)NonAf Random Glucose Calcium Total Bilirubin AST ALT Alkaline Phosphatase Total Protein Albumin POC Urine HCG, Qual Negative RPR Titer today pt is aaox3 ambulating no acute distress no s/s of withdrawals - Treatment Hospital Course: Detox Protocol Followed, Detoxed Safely, Responded well, Discharged Condition Good, Rehab Referral Accepted Patient has Accepted a Rehab Referral to: pt declined rehab; referral provided - Medication Discharge Medications: Ambulatory Orders Tenofovir Alafenamide Fumarate [Vemlidy] 25 mg PO DAILY 01/31/18 Quetiapine Fumarate [Seroquel] 200 mg PO BID 02/02/18 Enalapril Maleate [Vasotec -] 5 mg PO DAILY #30 tablet 02/06/18 Metoprolol Succinate [Toprol XL -] 25 mg PO DAILY #30 tab.sr.24h 02/06/18 Ranitidine [Zantac -] 150 mg PO DAILY 07/04/18 Albuterol Sulfate Inhaler - [Ventolin HFA Inhaler -] 2 puff IH Q4H PRN #1 inhaler 07/09/18 Aspirin [ASA -] 81 mg PO DAILY #30 tab.chew 07/09/18 Atorvastatin Ca [Lipitor] 40 mg PO DAILY #30 tablet 07/09/18 Pantoprazole Sodium [Protonix -] 40 mg PO DAILY@0600 #10 tablet.ec 07/09/18 Clopidogrel Bisulfate [Plavix -] 75 mg PO DAILY 01/11/19 Mirtazapine 15 mg PO DAILY 01/11/19 Ondansetron [Zofran *Odt*] 4 mg SL TID PRN 01/11/19 - Diagnosis (1) Alcohol dependence with withdrawal Current Visit: Yes Status: Chronic Qualifiers: Complication of substance-induced condition: uncomplicated Qualified Code(s ): F10.230 - Alcohol dependence with withdrawal, uncomplicated (2) Elevated liver enzymes Current Visit: Yes Status: Acute (3) Opioid dependence with withdrawal Current Visit: Yes Status: Chronic (4) Asthma Current Visit: Yes Status: Chronic Qualifiers: Asthma severity: mild Asthma persistence: intermittent Asthma complication type: with status asthmaticus Qualified Code(s): J45.22 - Mild intermittent asthma with status asthmaticus (5) Bipolar disorder Current Visit: Yes Status: Chronic (6) Cannabis dependence Current Visit: Yes Status: Chronic (7) Cocaine dependence Current Visit: Yes Status: Chronic Qualifiers: Substance use status: uncomplicated Qualified Code(s): F14.20 - Cocaine dependence, uncomplicated (8) Nicotine dependence Current Visit: Yes Status: Chronic Qualifiers: Nicotine product type: cigarettes Substance use status: uncomplicated Qualified Code(s): F17.210 - Nicotine dependence, cigarettes, uncomplicated (9) Non-compliance Current Visit: Yes Status: Chronic (10) Schizoaffective disorder Current Visit: Yes Status: Chronic Qualifiers: Schizoaffective disorder type: bipolar Qualified Code(s): F25.0 - Schizoaffective disorder, bipolar type (11) Substance induced mood disorder Current Visit: Yes Status: Chronic (12) Elevated blood pressure reading in office with diagnosis of hypertension Current Visit: Yes Status: Acute (13) Anxiety Current Visit: Yes Status: Chronic (14) CAD (coronary artery disease) Current Visit: Yes Status: Chronic (15) Depression Current Visit: No Status: Chronic Qualifiers: Depression Type: unspecified Qualified Code(s): F32.9 - Major depressive disorder, single episode, unspecified (16) HTN (hypertension) Current Visit: Yes Status: Chronic Qualifiers: Hypertension type: essential hypertension Qualified Code(s): I10 - Essential (primary) hypertension (17) Heart failure Current Visit: Yes Status: Chronic Qualifiers: Heart failure type: unspecified Heart failure chronicity: unspecified Qualified Code(s): I50.9 - Heart failure, unspecified (18) Hep B w/o coma Current Visit: No Status: Chronic (19) Hyperlipidemia Current Visit: Yes Status: Chronic Qualifiers: Hyperlipidemia type: unspecified Qualified Code(s): E78.5 - Hyperlipidemia , unspecified (20) Insomnia Current Visit: No Status: Chronic - AMA Did Patient Leave Against Medical Advice: No
--- NOTE | 2019-01-16 10:07 | PN ---
[facility] Progress Note Note: Patient is discharged today. Script for 30 days supply of Seroquel 50 mg/hs is electronically transmitted to [facility] at [address], [place] [address]
[2019-01-16] MEDS: metoPROLOL SUCCINATE 25 MG TAB.SR.24H (FP) PO SCH (10:08)
[2019-01-16] MEDS: ASPIRIN 81 MG CHEWABLE TABLETS PO SCH (10:08)
[2019-01-16] MEDS: ENALAPRIL MALEATE 5 MG TABLET (FP) PO SCH (10:08)
[2019-01-16] MEDS: MIRTAZAPINE 15 MG TABLET (FP) PO SCH (10:09)
[2019-01-16] MEDS: NICOTINE 14 MG/24 HOURS TOPICAL PATCH TD SCH (10:09)
[2019-01-16] MEDS: PRENATAL VITAMINS W/ FOLIC ACID TABLET (FP) PO SCH (10:09)
[2019-01-16] MEDS: CLOPIDOGREL BISULFATE 75 MG TABLET (FP) PO SCH (10:09)
[2019-01-16] MEDS: LIDOCAINE 5% TOPICAL PATCH TP SCH (10:09)
[2019-01-16] MEDS: ATORVASTATIN CA 40 MG TABLET (FP) PO SCH (10:09)
[2019-01-16] MEDS: RANITIDINE HCL 150 MG TABLET (FP) PO SCH (10:10)
== END 2019-01-16 11:26 | disposition home or self-care (01) | DRG 773 ==
LOC: YASAS 10:36 → Y3N 12:50 → Y6N 01-13 21:10
PROVIDERS: ADMIT Surgery; ATTEND Surgery
PROC: HZ2ZZZZ Detoxification Services for Substance Abuse Treatment (ICD-10-PCS; principal; 2019-01-11)
DX: F11.23 Opioid dependence with withdrawal (principal); F10.230 Alcohol dependence with withdrawal, uncomplicated; F14.20 Cocaine dependence, uncomplicated; F12.20 Cannabis dependence, uncomplicated; F17.210 Nicotine dependence, cigarettes, uncomplicated; F19.24 Other psychoactive substance dependence with psychoactive substance-induced mood disorder; F25.0 Schizoaffective disorder, bipolar type; F31.9 Bipolar disorder, unspecified; J45.22 Mild intermittent asthma with status asthmaticus; I25.10 Atherosclerotic heart disease of native coronary artery without angina pectoris; I11.0 Hypertensive heart disease with heart failure; I50.9 Heart failure, unspecified; Z95.5 Presence of coronary angioplasty implant and graft; B19.10 Unspecified viral hepatitis B without hepatic coma; E78.00 Pure hypercholesterolemia, unspecified; M54.5 Low back pain; R94.5 Abnormal results of liver function studies; Z86.73 Personal history of transient ischemic attack (TIA), and cerebral infarction without residual deficits; Z88.2 Allergy status to sulfonamides; Z88.8 Allergy status to other drugs, medicaments and biological substances; Z91.19 Patient's noncompliance with other medical treatment and regimen
CPT/HCPCS: 36415; 71046-TC-FY; 80053; 81025; 85027; 86593; 93005; 93010

== ENCOUNTER 2019-02-07 12:40 | Inpatient (IN) | payer OTHER ==
[2019-02-07 18:12] VITALS: BMI 20.3
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
[2019-02-07] MEDS ORDERED: ALBUTEROL SO4 8 GM HFA INHALER IH PRN (19:24)
[2019-02-07] MEDS ORDERED: MAGNESIUM CITRATE 300 ML BOTTLE PO PRN (19:26)
[2019-02-07] MEDS ORDERED: MENTHOL/PHENOL 1 EACH UD MM PRN (19:26)
[2019-02-07] MEDS ORDERED: IBUPROFEN 400 MG TABLET (FP) PO PRN (19:26)
[2019-02-07] MEDS ORDERED: MAGNESIUM HYDROX 2400MG/30ML ORAL SUSPENSION 30 ML CUP PO PRN (19:26)
[2019-02-07] MEDS ORDERED: ACETAMINOPHEN 325 MG TABLET (FP) PO PRN ×2 (19:26)
[2019-02-07] MEDS ORDERED: PROCHLORPERAZINE MALEATE 5 MG TABLET PO PRN (19:26)
[2019-02-07] MEDS ORDERED: BISMUTH SUBSALICYLATE 524 MG/30 ML UD PO PRN (19:26)
[2019-02-07] MEDS ORDERED: cloNIDine HCL 0.1 MG TABLET PO PRN (19:29)
[2019-02-07] MEDS ORDERED: metoPROLOL SUCCINATE 25 MG TAB.SR.24H (FP) PO SCH (20:00)
[2019-02-07] MEDS ORDERED: METHADONE HCL 10 MG TABLET (FOR DETOX USE ONLY) PO ONE (20:00)
[2019-02-07] MEDS: ASPIRIN 81 MG CHEWABLE TABLETS PO SCH (20:25)
[2019-02-07] MEDS: CLOPIDOGREL BISULFATE 75 MG TABLET (FP) PO SCH (20:26)
[2019-02-07] MEDS: ENALAPRIL MALEATE 10 MG TABLET (FP) PO SCH (20:26)
[2019-02-07] MEDS: THIAMINE HCL 100 MG TABLET (FP) PO SCH (22:06)
[2019-02-07] MEDS: MELATONIN 5 MG TABLETS PO PRN (22:07)
[2019-02-07] MEDS: ATORVASTATIN CA 40 MG TABLET (FP) PO SCH (22:07)
[2019-02-07] MEDS: hydrOXYzine PAMOATE 25 MG CAPSULE (FP) PO PRN (22:07)
--- NOTE | 2019-02-08 09:42 | PN ---
[facility] COWS - Scale Resting Pulse: 0= IA 80 or Below Sweatin= Chills/Flushing Restless Observation: 1= Difficult to Sit Still Pupil Size: 1= Pupils >than Normal Bone or Joint Aches: 1= Mild Discomfort Runny Nose/ Eye Tearin= None GI Upset > 30mins: 2= Nausea/Diarrhea Tremor Observation of Outstretched Hands: 2= Slight Tremor Visible Yawning Observation: 1= 1-2x During Session Anxiety or Irritability: 2=Irritable/Anxious Goose Flesh Skin: 3=Piloerection COWS Score: 14 BHS Progress Note (SOAP) Subjective: 48 years old female 5th patient [facility] admission since 2011 admitted on 02/07/19 for opiate withdrawal sx management begin methadone detox regimen long history of hypertension treated with enalapril and metoprolol both medication initiated upon admission discontinue clonidine begin valium prn for withdrawal sx management increase elanapril to 10 mg and metoprolol to 50 mg Objective: 02/08/19 09:45 Vital Signs Temperature 98.1 F 02/08/19 09:35 Pulse Rate 48 L 02/08/19 09:35 Respiratory Rate 18 02/08/19 09:35 Blood Pressure 181/104 H 02/08/19 09:35 O2 Sat by Pulse Oximetry (%) 02/08/19 09:46 lab see 12/2018 Assessment: 02/08/19 09:47 opiate withdrawal sx Plan: continue methadone detox regimen
[2019-02-08] MEDS ORDERED: METHADONE HCL 5 MG TABLET (FOR DETOX USE ONLY) PO ONE (10:00)
[2019-02-08] MEDS: ASPIRIN 81 MG CHEWABLE TABLETS PO SCH (10:04)
[2019-02-08] MEDS: PRENATAL VITAMINS W/ FOLIC ACID TABLET (FP) PO SCH (10:04)
[2019-02-08] MEDS: metoPROLOL SUCCINATE 25 MG TAB.SR.24H (FP) PO SCH ×2 (10:04→22:07)
[2019-02-08] MEDS: ENALAPRIL MALEATE 10 MG TABLET (FP) PO SCH (10:05)
[2019-02-08] MEDS: CLOPIDOGREL BISULFATE 75 MG TABLET (FP) PO SCH (10:06)
[2019-02-08] MEDS: RANITIDINE HCL 150 MG TABLET (FP) PO SCH (10:06)
[2019-02-08] MEDS: MAG HYDROX/AL HYDROX/SIMETH 30 ML UNIT-DOSE CUP PO PRN (12:11)
[2019-02-08] MEDS: diazePAM 5 MG TABLET PO PRN ×2 (12:11→22:06)
[2019-02-08] MEDS ORDERED: ONDANSETRON *ODT* 4 MG TABLET SL ONE (13:00)
[2019-02-08] MEDS ORDERED: LISINOPRIL 10 MG TABLET (FP) PO ONE (13:00)
[2019-02-08] MEDS: TENOFOVIR ALAFENAMIDE FUMARATE 25 MG PO SCH (13:39)
[2019-02-08] MEDS ORDERED: ENALAPRIL MALEATE 5 MG TABLET (FP) PO ONE (14:00)
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
[2019-02-08] MEDS: QUEtiapine FUMARATE 50 MG TABLET PO SCH (22:06)
[2019-02-08] MEDS: ATORVASTATIN CA 40 MG TABLET (FP) PO SCH (22:06)
[2019-02-08] MEDS: MELATONIN 5 MG TABLETS PO PRN (22:06)
[2019-02-08] MEDS: THIAMINE HCL 100 MG TABLET (FP) PO SCH (22:06)
[2019-02-08] MEDS: MIRTAZAPINE 15 MG TABLET (FP) PO SCH (22:07)
[2019-02-09] MEDS ORDERED: diazePAM 5 MG TABLET PO PRN (09:49)
[2019-02-09] MEDS ORDERED: METHADONE HCL 10 MG TABLET (FOR DETOX USE ONLY) PO ONE (10:00)
[2019-02-09] MEDS: RANITIDINE HCL 150 MG TABLET (FP) PO SCH (11:10)
[2019-02-09] MEDS: ENALAPRIL MALEATE 10 MG TABLET (FP) PO SCH (11:10)
[2019-02-09] MEDS: CLOPIDOGREL BISULFATE 75 MG TABLET (FP) PO SCH (11:10)
[2019-02-09] MEDS: metoPROLOL SUCCINATE 25 MG TAB.SR.24H (FP) PO SCH ×2 (11:10→22:05)
[2019-02-09] MEDS: ASPIRIN 81 MG CHEWABLE TABLETS PO SCH (11:10)
[2019-02-09] MEDS: PRENATAL VITAMINS W/ FOLIC ACID TABLET (FP) PO SCH (11:11)
[2019-02-09] MEDS: METHOCARBAMOL 500 MG TABLET PO PRN ×2 (11:13→22:07)
[2019-02-09] MEDS: MAG HYDROX/AL HYDROX/SIMETH 30 ML UNIT-DOSE CUP PO PRN (11:14)
[2019-02-09] MEDS: hydrOXYzine PAMOATE 25 MG CAPSULE (FP) PO PRN (11:15)
--- NOTE | 2019-02-09 13:18 | PN ---
[facility] COWS - Scale Resting Pulse: 1= SD 81-100 Sweatin= Chills/Flushing Restless Observation: 0= Sits Still Pupil Size: 0= Normal to Room Light Bone or Joint Aches: 1= Mild Discomfort Runny Nose/ Eye Tearin= Nasal Congestion GI Upset > 30mins: 1= Stomach Cramp Tremor Observation of Outstretched Hands: 2= Slight Tremor Visible Yawning Observation: 1= 1-2x During Session Anxiety or Irritability: 2=Irritable/Anxious Goose Flesh Skin: 0=Smooth Skin COWS Score: 10 B[facility] Progress Note (SOAP) Subjective: doing well with methadone detox regimen requests ativan prn instead of valium discuss medication assisted treatment program encourage berry picker narcan from pharmacy discuss aftercare with staff prefers [facility] requests ativan prn instead of valium change ativan prn Objective: 02/09/19 13:35 Vital Signs Temperature 97.7 F 02/09/19 10:00 Pulse Rate 86 02/09/19 10:00 Respiratory Rate 16 02/09/19 10:00 Blood Pressure 151/84 02/09/19 10:00 O2 Sat by Pulse Oximetry (%) Laboratory Last Values HIV 1&2 Antibody Screen Negative 02/08/19 07:50 HIV P24 Antigen Negative 02/08/19 07:50 02/09/19 13:36 see lab 01/11/19 report unremarkable no need for repeat 02/09/19 13:37 Assessment: 02/09/19 13:38 opiate withdrawal sx Plan: continue methadone detox regimen
[2019-02-09] MEDS ORDERED: LORazepam 0.5 MG TABLET PO PRN (13:25)
[2019-02-09] MEDS ORDERED: ENALAPRIL MALEATE 10 MG TABLET (FP) PO SCH ×2 (14:00→14:46)
--- NOTE | 2019-02-09 15:24 | PN ---
S Progress Note Note: received nurse called that 2pm enalapril been discontinued without apparent reason reorder enalapril 10 mg po now
[2019-02-09] MEDS ORDERED: ENALAPRIL MALEATE 10 MG TABLET (FP) PO ONE (15:30)
[2019-02-09] MEDS: TENOFOVIR ALAFENAMIDE FUMARATE 25 MG PO SCH (19:10)
[2019-02-09] MEDS: THIAMINE HCL 100 MG TABLET (FP) PO SCH (22:05)
[2019-02-09] MEDS: MIRTAZAPINE 15 MG TABLET (FP) PO SCH (22:06)
[2019-02-09] MEDS: QUEtiapine FUMARATE 50 MG TABLET PO SCH (22:06)
[2019-02-09] MEDS: ATORVASTATIN CA 40 MG TABLET (FP) PO SCH (22:06)
[2019-02-09] MEDS: MELATONIN 5 MG TABLETS PO PRN (22:07)
[2019-02-10] MEDS: METHOCARBAMOL 500 MG TABLET PO PRN ×2 (04:07→10:40)
[2019-02-10] MEDS: hydrOXYzine PAMOATE 25 MG CAPSULE (FP) PO PRN ×2 (04:07→10:40)
[2019-02-10] MEDS ORDERED: ENALAPRIL MALEATE 10 MG TABLET (FP) PO SCH (06:00)
[2019-02-10] MEDS ORDERED: METHADONE HCL 5 MG TABLET (FOR DETOX USE ONLY) PO ONE (06:00)
[2019-02-10 09:36] VITALS: BP 111/78; PULSE 84; TEMP 96.7
[2019-02-10] MEDS: ASPIRIN 81 MG CHEWABLE TABLETS PO SCH (10:40)
[2019-02-10] MEDS: CLOPIDOGREL BISULFATE 75 MG TABLET (FP) PO SCH (10:40)
[2019-02-10] MEDS: PRENATAL VITAMINS W/ FOLIC ACID TABLET (FP) PO SCH (10:40)
[2019-02-10] MEDS: metoPROLOL SUCCINATE 25 MG TAB.SR.24H (FP) PO SCH (10:40)
[2019-02-10] MEDS: RANITIDINE HCL 150 MG TABLET (FP) PO SCH (10:41)
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
== END 2019-02-10 12:25 | disposition other institution (70) | DRG 773 ==
LOC: YASAS 12:40 → Y3N 19:58
PROVIDERS: ADMIT Surgery; ATTEND Surgery
PROC: HZ2ZZZZ Detoxification Services for Substance Abuse Treatment (ICD-10-PCS; principal; 2019-02-07)
DX: F10.230 Alcohol dependence with withdrawal, uncomplicated (principal); F11.23 Opioid dependence with withdrawal; F14.20 Cocaine dependence, uncomplicated; F17.210 Nicotine dependence, cigarettes, uncomplicated; F19.24 Other psychoactive substance dependence with psychoactive substance-induced mood disorder; F31.9 Bipolar disorder, unspecified; G47.00 Insomnia, unspecified; I25.10 Atherosclerotic heart disease of native coronary artery without angina pectoris; I11.0 Hypertensive heart disease with heart failure; I50.9 Heart failure, unspecified; Z95.5 Presence of coronary angioplasty implant and graft; B19.10 Unspecified viral hepatitis B without hepatic coma; R94.5 Abnormal results of liver function studies; Z86.19 Personal history of other infectious and parasitic diseases; Z86.73 Personal history of transient ischemic attack (TIA), and cerebral infarction without residual deficits; Z87.828 Personal history of other (healed) physical injury and trauma; Z91.19 Patient's noncompliance with other medical treatment and regimen
CPT/HCPCS: 36415; 81025; 87389; J0735; Q0162

== ENCOUNTER 2019-02-10 12:37 | Inpatient (IN) | payer OTHER ==
--- NOTE | 2019-02-10 10:59 | PN ---
[facility] Progress Note Note: Psychiatry Attending's note : Approached by patient. Reason : refractory insomnia and anxiety. Ms De Leon is requesting seroquel dose increase. Psychoeducation : done. Side effects/benefits reviewed. Seroquel is now raised to 100 mg po hs. Patient agrees.
[2019-02-10] MEDS ORDERED: MAGNESIUM CITRATE 300 ML BOTTLE PO PRN (14:35)
[2019-02-10] MEDS ORDERED: MENTHOL/PHENOL 1 EACH UD MM PRN (14:35)
[2019-02-10] MEDS ORDERED: guaiFENesin 200 MG/10 ML 10 ML UNIT-DOSE CUPS PO PRN (14:35)
[2019-02-10] MEDS ORDERED: LOPERAMIDE HCL 2 MG CAPSULE PO PRN (14:35)
[2019-02-10] MEDS ORDERED: P-EPHED 60MG/TRIPROLIDI 2.5MG TABLET PO PRN (14:35)
[2019-02-10] MEDS ORDERED: MAGNESIUM HYDROX 2400MG/30ML ORAL SUSPENSION 30 ML CUP PO PRN (14:35)
[2019-02-10] MEDS ORDERED: ALBUTEROL SO4 8 GM HFA INHALER IH PRN (14:36)
[2019-02-10] MEDS ORDERED: ONDANSETRON *ODT* 4 MG TABLET SL PRN (14:38)
--- NOTE | 2019-02-10 14:39 | HP ---
[facility] Rehab Assess/Revision - Admission History Admitted to Rehab from: [facility] Date of Admission to Rehab: 02/10/2019 - Vital signs Vital Signs: NOTED; STABLE. - Findings Detox History & Physical reviewed: Yes Concur with findings: Yes Comments/Additional Findings: PATIENT'S MEDICAL / MEDICATION HISTORY REVIEWED PRIOR TO DISCHARGE FROM DETOX UNIT. PATIENT WAS DISCHARGED FROM DETOX UNIT TO BE TAKEN OVER TO REHAB UNIT IN STABLE MEDICAL CONDITION. Inpatient Rehab Admission - Rehab Decision to Admit Inpatient rehab admission?: Yes - Initial Determination Are CD services needed?: Yes Free of communicable disease: Yes Not in need of hospitalization: Yes - Rehab Admission Criteria Previous failed treatment: Yes Poor recovery environment: Yes Comorbidities: Yes Lacks judgement: Yes Patient is meeting Inpatient Rehab admission criteria:: Yes
[2019-02-10] MEDS ORDERED: hydrOXYzine PAMOATE 50 MG CAPSULE (FP) PO ONE (18:30)
[2019-02-10] MEDS: THIAMINE HCL 100 MG TABLET (FP) PO SCH (21:45)
[2019-02-10] MEDS: RANITIDINE HCL 150 MG TABLET (FP) PO SCH (21:45)
[2019-02-10] MEDS: QUEtiapine FUMARATE 100 MG TABLET (FP) PO SCH (21:45)
[2019-02-10] MEDS: MELATONIN 5 MG TABLETS PO PRN (21:45)
[2019-02-10] MEDS: ENALAPRIL MALEATE 10 MG TABLET (FP) PO SCH (21:45)
[2019-02-10] MEDS: ATORVASTATIN CA 40 MG TABLET (FP) PO SCH (21:45)
[2019-02-11] MEDS ORDERED: PANTOPRAZOLE 40 MG TABLET (FP) PO SCH (06:00)
[2019-02-11] MEDS ORDERED: cloNIDine HCL 0.1 MG TABLET PO ONE (06:31)
[2019-02-11] MEDS: CLOPIDOGREL BISULFATE 75 MG TABLET (FP) PO SCH (06:56)
[2019-02-11] MEDS: metoPROLOL SUCCINATE 25 MG TAB.SR.24H (FP) PO SCH (10:32)
[2019-02-11] MEDS: ENALAPRIL MALEATE 10 MG TABLET (FP) PO SCH ×2 (10:32→21:07)
[2019-02-11] MEDS: PRENATAL VITAMINS W/ FOLIC ACID TABLET (FP) PO SCH (10:32)
[2019-02-11] MEDS: ASPIRIN 81 MG CHEWABLE TABLETS PO SCH (10:32)
[2019-02-11] MEDS: RANITIDINE HCL 150 MG TABLET (FP) PO SCH ×2 (10:32→21:07)
[2019-02-11] MEDS: CYCLOBENZAPRINE HCL 10 MG TABLET (FP) PO PRN ×2 (11:46→21:09)
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
[2019-02-11] MEDS: hydrOXYzine PAMOATE 25 MG CAPSULE (FP) PO PRN ×2 (13:51→21:08)
[2019-02-11] MEDS: MIRTAZAPINE 15 MG TABLET (FP) PO SCH (21:07)
[2019-02-11] MEDS: THIAMINE HCL 100 MG TABLET (FP) PO SCH (21:07)
[2019-02-11] MEDS: QUEtiapine FUMARATE 100 MG TABLET (FP) PO SCH (21:07)
[2019-02-11] MEDS: ATORVASTATIN CA 40 MG TABLET (FP) PO SCH (21:07)
[2019-02-11] MEDS: MELATONIN 5 MG TABLETS PO PRN (21:08)
[2019-02-12] MEDS: CLOPIDOGREL BISULFATE 75 MG TABLET (FP) PO SCH (07:07)
[2019-02-12] MEDS: ENALAPRIL MALEATE 10 MG TABLET (FP) PO SCH ×2 (09:37→21:03)
[2019-02-12] MEDS: ASPIRIN 81 MG CHEWABLE TABLETS PO SCH (09:37)
[2019-02-12] MEDS: PRENATAL VITAMINS W/ FOLIC ACID TABLET (FP) PO SCH (09:37)
[2019-02-12] MEDS: metoPROLOL SUCCINATE 25 MG TAB.SR.24H (FP) PO SCH (09:37)
[2019-02-12] MEDS: QUEtiapine FUMARATE 50 MG TABLET PO SCH (09:37)
[2019-02-12] MEDS: RANITIDINE HCL 150 MG TABLET (FP) PO SCH ×2 (09:38→21:03)
[2019-02-12] MEDS: CYCLOBENZAPRINE HCL 10 MG TABLET (FP) PO PRN ×2 (12:32→21:05)
[2019-02-12] MEDS: hydrOXYzine PAMOATE 25 MG CAPSULE (FP) PO PRN ×2 (12:32→18:54)
--- NOTE | 2019-02-12 12:52 | PN ---
S Progress Note Note: AT 815 CALLED TO EVAL PT ON UNIT CO VOMITING, BLOODY EMESIS ON ARRIVAL PT TREPORTS NAUSEA AND NO PO FLUIDS SINCE ADMISSION Vital Signs - 24 hr 02/12/19 02/12/19 02/12/19 00:30 03:30 07:25 Temperature 97.4 F L Pulse Rate 53 L Respiratory 18 18 16 Rate Blood Pressure 163/97 02/12/19 02/12/19 08:26 09:32 Temperature 97.9 F Pulse Rate 54 L 53 L Respiratory 20 19 Rate Blood Pressure 181/102 H 182/103 H BP ELEVATED ANXIOUS CO ABD PAIN DIFFUSE TENDERNESS AP ABD PAIN, POST ACUTE WITHDRAWAL OBSERVATION ENCOURAGE PO CONSIDER LABS IF SX PROGRESS EEVATED BP CONT TO MONITOR POST MEDS
[2019-02-12] MEDS: ATORVASTATIN CA 40 MG TABLET (FP) PO SCH (21:03)
[2019-02-12] MEDS: THIAMINE HCL 100 MG TABLET (FP) PO SCH (21:03)
[2019-02-12] MEDS: MIRTAZAPINE 15 MG TABLET (FP) PO SCH (21:03)
[2019-02-12] MEDS: QUEtiapine FUMARATE 100 MG TABLET (FP) PO SCH (21:03)
[2019-02-12] MEDS: MELATONIN 5 MG TABLETS PO PRN (21:04)
[2019-02-13] MEDS ORDERED: cloNIDine HCL 0.1 MG TABLET PO ONE (06:29)
--- NOTE | 2019-02-13 06:31 | PN ---
S Progress Note Note: Patient's blood pressure is B/P 180/115. Patient is asymptomatic Vital Signs Temperature 97.7 F 02/13/19 06:27 Pulse Rate 57 L 02/13/19 06:27 Respiratory Rate 18 02/13/19 06:27 Blood Pressure 180/115 H 02/13/19 06:27 O2 Sat by Pulse Oximetry (%) Action: Clonidine 0.1mg tablet oral ordered
[2019-02-13] MEDS: CLOPIDOGREL BISULFATE 75 MG TABLET (FP) PO SCH (06:34)
[2019-02-13] MEDS: MAG HYDROX/AL HYDROX/SIMETH 30 ML UNIT-DOSE CUP PO PRN (07:47)
[2019-02-13] MEDS: metoPROLOL SUCCINATE 25 MG TAB.SR.24H (FP) PO SCH (10:11)
[2019-02-13] MEDS: PRENATAL VITAMINS W/ FOLIC ACID TABLET (FP) PO SCH (10:11)
[2019-02-13] MEDS: QUEtiapine FUMARATE 50 MG TABLET PO SCH (10:11)
[2019-02-13] MEDS: ASPIRIN 81 MG CHEWABLE TABLETS PO SCH (10:11)
[2019-02-13] MEDS: ENALAPRIL MALEATE 10 MG TABLET (FP) PO SCH ×2 (10:12→22:27)
[2019-02-13] MEDS: RANITIDINE HCL 150 MG TABLET (FP) PO SCH ×2 (10:12→21:07)
[2019-02-13] MEDS: hydrOXYzine PAMOATE 25 MG CAPSULE (FP) PO PRN ×3 (10:13→21:07)
[2019-02-13] MEDS: CYCLOBENZAPRINE HCL 10 MG TABLET (FP) PO PRN ×2 (10:13→21:12)
--- NOTE | 2019-02-13 11:42 | PN ---
[facility] Progress Note Note: Patient c/o LBP and body aches which she states happens when she stops "using". Patient denies recent hx of injury or falls. Vital Signs Temperature 97.7 F 02/13/19 06:27 Pulse Rate 69 02/13/19 10:00 Respiratory Rate 18 02/13/19 06:27 Blood Pressure 126/82 02/13/19 10:00 O2 Sat by Pulse Oximetry (%) PE alert and oriented x 3 skin warm and dry +perrla, eoms intact, + jaundiced sclera ms + tenderness to ls spine area ext full rom, amb ad nathaly A/P LBP Patient has hx of Hep c so unable to have apap/ibu prn will continued flexeril add lidocaine patch to area daily monitor
[2019-02-13] MEDS: LIDOCAINE 5% TOPICAL PATCH TP SCH (12:30)
[2019-02-13] MEDS: MIRTAZAPINE 15 MG TABLET (FP) PO SCH (21:07)
[2019-02-13] MEDS: QUEtiapine FUMARATE 100 MG TABLET (FP) PO SCH (21:07)
[2019-02-13] MEDS: ATORVASTATIN CA 40 MG TABLET (FP) PO SCH (21:07)
[2019-02-13] MEDS: THIAMINE HCL 100 MG TABLET (FP) PO SCH (21:08)
[2019-02-13] MEDS: MELATONIN 5 MG TABLETS PO PRN (21:08)
[2019-02-13] MEDS: LIDOCAINE PATCH REMOVAL MC SCH (21:09)
[2019-02-14] MEDS: CLOPIDOGREL BISULFATE 75 MG TABLET (FP) PO SCH (06:44)
[2019-02-14] MEDS: MAG HYDROX/AL HYDROX/SIMETH 30 ML UNIT-DOSE CUP PO PRN (07:20)
[2019-02-14] MEDS: ASPIRIN 81 MG CHEWABLE TABLETS PO SCH ×2 (08:01→12:05)
--- NOTE | 2019-02-14 08:11 | PN ---
[facility] Progress Note Note: called by nursing for pt w/ elevated BP 148/94 P 65, then told by nursing pt c/o CP started this morning , radiating to left side of chest and into left shoulder . pt resting in bed comfortably , NAD . Active Medications Al Hydroxide/Mg Hydroxide (Mylanta Oral Suspension -) 30 ml PO Q6H PRN PRN Reason: DYSPEPSIA Last Admin: 02/14/19 07:20 Dose: 30 ml Albuterol Sulfate (Ventolin Hfa Inhaler -) 2 puff IH Q4H PRN PRN Reason: SHORT OF BREATH/WHEEZING Aspirin (Asa -) 81 mg PO DAILY [facility] Last Admin: 02/14/19 08:01 Dose: 81 mg Atorvastatin Calcium (Lipitor -) 40 mg PO HS [facility] Last Admin: 02/13/19 21:07 Dose: 40 mg Clopidogrel Bisulfate (Plavix -) 75 mg PO DAILY@0700 [facility] Last Admin: 02/14/19 06:44 Dose: 75 mg Cyclobenzaprine HCl (Flexeril -) 10 mg PO TID PRN PRN Reason: MUSCLE SPASMS Last Admin: 02/13/19 21:12 Dose: 10 mg Enalapril Maleate (Vasotec -) 20 mg PO BID [facility] Last Admin: 02/13/19 22:27 Dose: 20 mg Eucalyptus/Menthol/Phenol/Sorbitol (Cepastat Lozenge -) 1 each MM Q4H PRN PRN Reason: SORE THROAT Guaifenesin (Robitussin -) 10 ml PO Q6H PRN PRN Reason: COUGH Hydroxyzine Pamoate (Vistaril -) 25 mg PO Q4H PRN PRN Reason: ANXIETY Last Admin: 02/13/19 21:07 Dose: 25 mg Lidocaine (Lidoderm Patch -) 1 patch TP DAILY [facility] Last Admin: 02/13/19 12:30 Dose: 1 patch Loperamide HCl (Imodium -) 4 mg PO Q6H PRN PRN Reason: DIARRHEA Magnesium Citrate (Citroma -) 300 ml PO Q48H PRN PRN Reason: CONSTIPATION Magnesium Hydroxide (Milk Of Magnesia -) 30 ml PO DAILY PRN PRN Reason: CONSTIPATION Melatonin (Melatonin) 5 mg PO HS PRN PRN Reason: INSOMNIA Last Admin: 02/13/19 21:08 Dose: 5 mg Metoprolol Succinate (Toprol Xl -) 25 mg PO DAILY [facility] Last Admin: 02/13/19 10:11 Dose: 25 mg Mirtazapine (Remeron -) 15 mg PO [facility] Last Admin: 02/13/19 21:07 Dose: 15 mg Miscellaneous (Lidoderm Patch Removal) 1 each MC DAILY@2200 [facility] Last Admin: 02/13/19 21:09 Dose: 1 each Ondansetron HCl (Zofran Odt -) 4 mg SL Q8H PRN PRN Reason: NAUSEA AND/OR VOMITING Stop: 02/15/19 14:37 Multivit/Folic Acid/Iron ( Vitamins (Sjr) -) 1 tab PO DAILY [facility] Last Admin: 02/13/19 10:11 Dose: 1 tab Pseudoephedrine/Triprolidine (Actifed -) 1 combo PO TID PRN PRN Reason: NASAL CONGESTION Quetiapine Fumarate (Seroquel -) 100 mg PO [facility] Last Admin: 02/13/19 21:07 Dose: 100 mg Quetiapine Fumarate (Seroquel -) 50 mg PO DAILY [facility] Last Admin: 02/13/19 10:11 Dose: 50 mg Ranitidine HCl (Zantac -) 150 mg PO BID [facility] Last Admin: 02/13/19 21:07 Dose: 150 mg Thiamine HCl (Vitamin B1 -) 100 mg PO [facility] Last Admin: 02/13/19 21:08 Dose: 100 mg Vital Signs - 24 hr 02/13/19 02/13/19 02/14/19 10:00 20:40 00:30 Temperature Pulse Rate 69 59 L Respiratory 17 Rate Blood Pressure 126/82 144/85 02/14/19 02/14/19 03:30 07:15 Temperature 97.4 F L Pulse Rate 65 Respiratory 18 18 Rate Blood Pressure 148/94 EKG ordered - sinus bradycardia 56 , T-wave abnormality consider infero- lateral ischemia . Aspirin ordered, pt sent to [facility] ED for further evaluation & tx , report given to Dr Martini .
[2019-02-14] MEDS: LIDOCAINE 5% TOPICAL PATCH TP SCH (12:05)
[2019-02-14] MEDS: PRENATAL VITAMINS W/ FOLIC ACID TABLET (FP) PO SCH (12:05)
[2019-02-14] MEDS: QUEtiapine FUMARATE 50 MG TABLET PO SCH (12:06)
[2019-02-14] MEDS: metoPROLOL SUCCINATE 25 MG TAB.SR.24H (FP) PO SCH (12:06)
[2019-02-14] MEDS: ENALAPRIL MALEATE 10 MG TABLET (FP) PO SCH ×2 (12:08→22:01)
[2019-02-14] MEDS: RANITIDINE HCL 150 MG TABLET (FP) PO SCH ×2 (12:08→21:57)
--- NOTE | 2019-02-14 12:09 | EKG ---
Test Reason : Blood Pressure : / mmHG Vent. Rate : 063 BPM Atrial Rate : 063 BPM P-R Int : 126 ms QRS Dur : 084 ms QT Int : 462 ms P-R-T Axes : 055 039 269 degrees QTc Int : 472 ms NORMAL SINUS RHYTHM T WAVE ABNORMALITY, CONSIDER INFERIOR ISCHEMIA PROLONGED QT ABNORMAL ECG WHEN COMPARED WITH ECG OF 11-JAN-2019 11:52, T WAVE INVERSION MORE EVIDENT IN INFERIOR LEADS T WAVE INVERSION NOW EVIDENT IN LATERAL LEADS Confirmed by MD Cielo, Juancho ([id number]) on 02/14/2019 12:08:41 PM Referred By: Confirmed By:Juancho Buck MD
[2019-02-14] MEDS: hydrOXYzine PAMOATE 25 MG CAPSULE (FP) PO PRN ×2 (18:54→21:59)
[2019-02-14] MEDS: cloNIDine HCL 0.1 MG TABLET PO PRN (18:54)
[2019-02-14] MEDS: MIRTAZAPINE 15 MG TABLET (FP) PO SCH (21:57)
[2019-02-14] MEDS: QUEtiapine FUMARATE 100 MG TABLET (FP) PO SCH (21:57)
[2019-02-14] MEDS: THIAMINE HCL 100 MG TABLET (FP) PO SCH (21:57)
[2019-02-14] MEDS: ATORVASTATIN CA 40 MG TABLET (FP) PO SCH (21:57)
[2019-02-14] MEDS: MELATONIN 5 MG TABLETS PO PRN (21:57)
[2019-02-14] MEDS: CYCLOBENZAPRINE HCL 10 MG TABLET (FP) PO PRN (21:59)
[2019-02-14] MEDS: LIDOCAINE PATCH REMOVAL MC SCH (22:01)
[2019-02-15] MEDS: CLOPIDOGREL BISULFATE 75 MG TABLET (FP) PO SCH (06:43)
[2019-02-15] MEDS: cloNIDine HCL 0.1 MG TABLET PO PRN ×2 (06:43→22:04)
[2019-02-15] MEDS: PRENATAL VITAMINS W/ FOLIC ACID TABLET (FP) PO SCH (09:33)
[2019-02-15] MEDS: QUEtiapine FUMARATE 50 MG TABLET PO SCH (09:33)
[2019-02-15] MEDS: ASPIRIN 81 MG CHEWABLE TABLETS PO SCH (09:33)
[2019-02-15] MEDS: metoPROLOL SUCCINATE 25 MG TAB.SR.24H (FP) PO SCH (09:33)
[2019-02-15] MEDS: LIDOCAINE 5% TOPICAL PATCH TP SCH (09:33)
[2019-02-15] MEDS: RANITIDINE HCL 150 MG TABLET (FP) PO SCH ×2 (09:34→22:04)
[2019-02-15] MEDS: hydrOXYzine PAMOATE 25 MG CAPSULE (FP) PO PRN ×2 (09:35→18:12)
[2019-02-15] MEDS: CYCLOBENZAPRINE HCL 10 MG TABLET (FP) PO PRN (09:35)
[2019-02-15] MEDS: ENALAPRIL MALEATE 10 MG TABLET (FP) PO SCH ×2 (10:22→22:04)
--- NOTE | 2019-02-15 15:07 | PN ---
S Progress Note (SOAP) Subjective: Patient c/o back pain unrelieved with muscle relaxant and lidoderm patch. Chronic back pain. In addition, difficulty with sleep. Pt has PMHx of Hep B treated with tenofovir. Objective: 02/15/19 15:03 Home Medication List Medication Instructions Recorded Confirmed Type Tenofovir Alafenamide Fumarate 300 mg PO DAILY 01/31/18 02/14/19 History [Vemlidy] Quetiapine Fumarate [Seroquel -] 200 mg PO BID 02/02/18 02/14/19 History Ondansetron [Zofran *Odt*] 4 mg SL TID PRN 01/11/19 02/14/19 History Enalapril Maleate [Vasotec -] 5 mg PO BID 02/09/19 02/14/19 History Atorvastatin Ca [Lipitor] 40 mg PO HS 02/10/19 02/14/19 History Mirtazapine [Remeron -] 15 mg PO HS 02/10/19 02/14/19 History 02/15/19 15:04 P/E: General: appears to be in discomfort Heart: s1 s2 audible Lungs: clear BACK; spine aligned, lower backend java developer to palpation MSK: full weight bearing, steady gait, ROM limited by pain 02/15/19 15:05 Assessment: Back pain Hep B 02/15/19 15:06 Plan: Back pain: flexeril changed to roboxin; gabapentin added, woodrow-evans added. NSAID was not added, patient is on plavix. HEP B: Tenofovir started Insomnia: melatonin increased to 10 mg, pt has seroquel 100 at HS. pain may be interfering with sleep and a decrease in pain my promote sleep.
[2019-02-15] MEDS: GABAPENTIN 300 MG CAPSULE (FP) PO SCH ×2 (18:09→22:04)
[2019-02-15] MEDS: METHOCARBAMOL 750 MG TABLET PO SCH ×2 (18:09→22:09)
[2019-02-15] MEDS ORDERED: PT OWN MED DRAWER 7, Y5N ONE ×3 (18:12→23:19)
[2019-02-15] MEDS: THIAMINE HCL 100 MG TABLET (FP) PO SCH (22:04)
[2019-02-15] MEDS: ATORVASTATIN CA 40 MG TABLET (FP) PO SCH (22:04)
[2019-02-15] MEDS: QUEtiapine FUMARATE 100 MG TABLET (FP) PO SCH (22:04)
[2019-02-15] MEDS: MIRTAZAPINE 15 MG TABLET (FP) PO SCH (22:04)
[2019-02-15] MEDS: MELATONIN 5 MG TABLETS PO PRN (22:07)
[2019-02-15] MEDS: LIDOCAINE PATCH REMOVAL MC SCH (22:08)
[2019-02-15] MEDS: METHYL SALICYLATE/MENTHOL OINT 30 GM TUBE TP SCH (22:08)
[2019-02-15] MEDS: TENOFOVIR DISOPROXIL FUMARATE 300 MG TABLET PO SCH (23:18)
[2019-02-16] MEDS: cloNIDine HCL 0.1 MG TABLET PO PRN (06:56)
[2019-02-16] MEDS: CLOPIDOGREL BISULFATE 75 MG TABLET (FP) PO SCH (06:56)
[2019-02-16] MEDS: GABAPENTIN 300 MG CAPSULE (FP) PO SCH ×3 (06:56→21:28)
[2019-02-16] MEDS: METHOCARBAMOL 750 MG TABLET PO SCH ×3 (06:56→21:28)
[2019-02-16] MEDS ORDERED: PT OWN MED DRAWER 7, Y5N ONE ×3 (09:05→19:53)
[2019-02-16] MEDS: LIDOCAINE 5% TOPICAL PATCH TP SCH (09:55)
[2019-02-16] MEDS: ENALAPRIL MALEATE 10 MG TABLET (FP) PO SCH ×2 (09:56→21:28)
[2019-02-16] MEDS: RANITIDINE HCL 150 MG TABLET (FP) PO SCH ×2 (09:56→21:28)
[2019-02-16] MEDS: metoPROLOL SUCCINATE 25 MG TAB.SR.24H (FP) PO SCH (09:56)
[2019-02-16] MEDS: QUEtiapine FUMARATE 50 MG TABLET PO SCH (09:56)
[2019-02-16] MEDS: ASPIRIN 81 MG CHEWABLE TABLETS PO SCH (09:56)
[2019-02-16] MEDS: PRENATAL VITAMINS W/ FOLIC ACID TABLET (FP) PO SCH (09:56)
[2019-02-16] MEDS: TENOFOVIR DISOPROXIL FUMARATE 300 MG TABLET PO SCH (09:57)
[2019-02-16] MEDS: hydrOXYzine PAMOATE 25 MG CAPSULE (FP) PO PRN (09:58)
[2019-02-16] MEDS: ATORVASTATIN CA 40 MG TABLET (FP) PO SCH (21:28)
[2019-02-16] MEDS: MIRTAZAPINE 15 MG TABLET (FP) PO SCH (21:28)
[2019-02-16] MEDS: THIAMINE HCL 100 MG TABLET (FP) PO SCH (21:28)
[2019-02-16] MEDS: QUEtiapine FUMARATE 100 MG TABLET (FP) PO SCH (21:28)
[2019-02-16] MEDS: MELATONIN 5 MG TABLETS PO PRN (21:29)
[2019-02-16] MEDS: LIDOCAINE PATCH REMOVAL MC SCH (21:30)
[2019-02-16] MEDS: METHYL SALICYLATE/MENTHOL OINT 30 GM TUBE TP SCH (21:30)
[2019-02-17] MEDS ORDERED: PT OWN MED DRAWER 7, Y5N ONE ×2 (03:26→09:12)
[2019-02-17] MEDS: METHOCARBAMOL 750 MG TABLET PO SCH (06:16)
[2019-02-17] MEDS: cloNIDine HCL 0.1 MG TABLET PO PRN (06:16)
[2019-02-17] MEDS: GABAPENTIN 300 MG CAPSULE (FP) PO SCH (06:16)
[2019-02-17] MEDS: CLOPIDOGREL BISULFATE 75 MG TABLET (FP) PO SCH (06:16)
[2019-02-17 07:33] VITALS: TEMP 97.5
--- NOTE | 2019-02-17 09:10 | PN ---
[facility] Progress Note Note: Patient is scheduled for discharge today. Scripts for 30 days supply of medications(Seroquel 50 mg/day & 100 mg/hs, Remeron 15 mg/hs) are electronically transmitted to [facility] at [address], [place] [address]
[2019-02-17] MEDS: PRENATAL VITAMINS W/ FOLIC ACID TABLET (FP) PO SCH (09:13)
[2019-02-17] MEDS: metoPROLOL SUCCINATE 25 MG TAB.SR.24H (FP) PO SCH (09:13)
[2019-02-17] MEDS: QUEtiapine FUMARATE 50 MG TABLET PO SCH (09:13)
[2019-02-17] MEDS: RANITIDINE HCL 150 MG TABLET (FP) PO SCH (09:13)
[2019-02-17] MEDS: LIDOCAINE 5% TOPICAL PATCH TP SCH (09:13)
[2019-02-17] MEDS: ASPIRIN 81 MG CHEWABLE TABLETS PO SCH (09:13)
[2019-02-17] MEDS: TENOFOVIR DISOPROXIL FUMARATE 300 MG TABLET PO SCH (09:14)
[2019-02-17] MEDS: ENALAPRIL MALEATE 10 MG TABLET (FP) PO SCH (09:18)
[2019-02-17 09:34] VITALS: BP 127/90; PULSE 88
--- NOTE | 2019-02-17 11:50 | DS ---
[facility] Rehab Discharge Summary - [facility] Discharge Summary Admission Date: 02/10/19 Discharge Date: 02/17/19 - History Present History: Opioid dependence - Discharge Physical Exam Vital Signs: Vital Signs Temperature 97.5 F L 02/17/19 07:31 Pulse Rate 88 02/17/19 09:34 Respiratory Rate 18 02/17/19 07:31 Blood Pressure 127/90 02/17/19 09:34 O2 Sat by Pulse Oximetry (%) Pertinent Admission Physical Exam Findings: ROS: denies opiod cravings, night sweats, chest pain and sob. PE alert and oriented x 3 skin warm and dry +perrla, eoms intact bl car s1s2 resp cta bl ext full rom, no tremors amb ad nathaly - Treatment Discharge Condition: Discharge condition good Hospital Course: Patient requested early discharge from rehab due to personal family matters. Patient states she "got all she was going to get from rehab" at this time. Patient attended all meetings and states she accomplished all rehab goals. Patient is medically stable and denies SI/HI. Patients states she will call aftercare site [facility] for addiction services once she is discharged to see if she can get earlier appointment as initial appointment scheduled for 02/27/19 at 10am. Patient encouraged to attend group meetings to prevent relapse and follow up with pcp within one week of discharge. Ambulatory Orders Tenofovir Alafenamide Fumarate [Vemlidy] 300 mg PO DAILY 01/31/18 Quetiapine Fumarate [Seroquel -] 200 mg PO BID 02/02/18 Ondansetron [Zofran *Odt*] 4 mg SL TID PRN 01/11/19 Pantoprazole Sodium [Protonix -] 40 mg PO DAILY@0600 #10 tablet.ec 01/16/19 Quetiapine Fumarate [Seroquel -] 50 mg PO HS #30 tablet 01/16/19 Enalapril Maleate [Vasotec -] 5 mg PO BID 02/09/19 Albuterol Sulfate Inhaler - [Ventolin HFA Inhaler -] 2 puff IH Q4H PRN #1 inhaler 02/17/19 Aspirin [ASA -] 81 mg PO DAILY #30 tab.chew 02/17/19 Atorvastatin Ca [Lipitor] 40 mg PO HS #30 tablet 02/17/19 Clopidogrel Bisulfate [Plavix -] 75 mg PO DAILY #30 tablet 02/17/19 Enalapril Maleate [Vasotec -] 20 mg PO BID #60 tablet 02/17/19 Gabapentin [Neurontin -] 300 mg PO TID #30 capsule 02/17/19 Metoprolol Succinate [Toprol XL -] 25 mg PO DAILY #30 tab.sr.24h 02/17/19 Mirtazapine [Remeron -] 15 mg PO HS #30 tablet 02/17/19 Quetiapine Fumarate [Seroquel -] 50 mg PO DAILY #30 tablet 02/17/19 Quetiapine Fumarate [Seroquel -] 100 mg PO HS #30 tablet 02/17/19 Ranitidine [Zantac -] 150 mg PO BID #60 tablet 02/17/19 - Medication Discharge Medications: Ambulatory Orders Tenofovir Alafenamide Fumarate [Vemlidy] 300 mg PO DAILY 01/31/18 Quetiapine Fumarate [Seroquel -] 200 mg PO BID 02/02/18 Ondansetron [Zofran *Odt*] 4 mg SL TID PRN 01/11/19 Pantoprazole Sodium [Protonix -] 40 mg PO DAILY@0600 #10 tablet.ec 01/16/19 Quetiapine Fumarate [Seroquel -] 50 mg PO HS #30 tablet 01/16/19 Enalapril Maleate [Vasotec -] 5 mg PO BID 02/09/19 Albuterol Sulfate Inhaler - [Ventolin HFA Inhaler -] 2 puff IH Q4H PRN #1 inhaler 02/17/19 Aspirin [ASA -] 81 mg PO DAILY #30 tab.chew 02/17/19 Atorvastatin Ca [Lipitor] 40 mg PO HS #30 tablet 02/17/19 Clopidogrel Bisulfate [Plavix -] 75 mg PO DAILY #30 tablet 02/17/19 Enalapril Maleate [Vasotec -] 20 mg PO BID #60 tablet 02/17/19 Gabapentin [Neurontin -] 300 mg PO TID #30 capsule 02/17/19 Metoprolol Succinate [Toprol XL -] 25 mg PO DAILY #30 tab.sr.24h 02/17/19 Mirtazapine [Remeron -] 15 mg PO HS #30 tablet 02/17/19 Quetiapine Fumarate [Seroquel -] 50 mg PO DAILY #30 tablet 02/17/19 Quetiapine Fumarate [Seroquel -] 100 mg PO HS #30 tablet 02/17/19 Ranitidine [Zantac -] 150 mg PO BID #60 tablet 02/17/19 - Medication-Assisted Treatment (MAT) Medication-Assisted Treatment (MAT): No MAT Follow-up Referral: [facility] addiction services, patient to has appointment 02/27/19 a 10am. Contact information provided to patient by counselor. - Discharge Instructions Diet, activity, other medical instructions: Diet: low sodium, as tolerated Activity: as tolerated Other medical instructions: follow up with pcp within one week of discharge - Follow-up Referral Minutes to complete discharge: 30 - AMA Did Patient Leave Against Medical Advice: No
== END 2019-02-17 10:00 | disposition home or self-care (01) | DRG 772 ==
LOC: YASAS 12:37 → Y3E 12:39
PROVIDERS: ADMIT Neuromusculoskeletal Medicine & OMM; ATTEND Neuromusculoskeletal Medicine & OMM
PROC: HZ42ZZZ Group Counseling for Substance Abuse Treatment, Cognitive-Behavioral (ICD-10-PCS; principal; 2019-02-10)
DX: F11.20 Opioid dependence, uncomplicated (principal); F10.20 Alcohol dependence, uncomplicated; F14.20 Cocaine dependence, uncomplicated; F17.210 Nicotine dependence, cigarettes, uncomplicated; F19.24 Other psychoactive substance dependence with psychoactive substance-induced mood disorder; F31.9 Bipolar disorder, unspecified; I11.0 Hypertensive heart disease with heart failure; G47.00 Insomnia, unspecified; I25.10 Atherosclerotic heart disease of native coronary artery without angina pectoris; I50.9 Heart failure, unspecified; E78.5 Hyperlipidemia, unspecified; K21.9 Gastro-esophageal reflux disease without esophagitis; M54.5 Low back pain; R00.1 Bradycardia, unspecified; R94.31 Abnormal electrocardiogram [ECG] [EKG]; R10.9 Unspecified abdominal pain; J45.909 Unspecified asthma, uncomplicated; Z95.5 Presence of coronary angioplasty implant and graft; Z86.19 Personal history of other infectious and parasitic diseases; Z86.73 Personal history of transient ischemic attack (TIA), and cerebral infarction without residual deficits
CPT/HCPCS: 93005; 93010; J0735

== ENCOUNTER 2019-02-14 08:45 | Observation (INO) | payer OTHER ==
[2019-02-14 09:00] VITALS: BMI 20.3
[2019-02-14] MEDS ORDERED: ASPIRIN 81 MG CHEWABLE TABLETS PO ONE (09:32)
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
[2019-02-14 10:28] LABS: BASO % 0.2 % (0-2.0); EOS % 1.5 % (0-4.5); HEMATOCRIT 44.5 % (32.4-45.2); HEMOGLOBIN 14.8 GM/dL (10.7-15.3); LYMPH % 26.2 % (8-40); MCH 32.8 pg (25.7-33.7); MCHC 33.2 g/dl (32.0-36.0); MEAN PLT VOLUME 9.3 fl (7.5-11.1); MONO % 6.7 % (3.8-10.2); NEUT % 65.4 % (42.8-82.8); PLATELET COUNT 140 K/MM3 (134-434); RBC 4.49 M/mm3 (3.60-5.2); RDW 15.6 % (11.6-15.6)
--- NOTE | 2019-02-14 10:38 | PDOC ---
Attending Attestation - Resident Resident Name: Moy Núñez - ED Attending Attestation I have performed the following: I have examined & evaluated the patient, The case was reviewed & discussed with the resident, I agree w/resident's findings & plan - HPI HPI: 02/14/19 10:38 48F with a PMH of CAD s/p stents, CHF, HLD, Hep C, GERD, opioid dependence who presents to the ER with complaints of left sided sharp CP, which woke her up at 730a. she felt like it was reflux symptoms. She states the CP gradually started and worsened. It was associated with nausea , lightheadedness, palpitations, and shortness of breath. She admits to IVDA 1 week ago and has had on/off fevers and chills for 2 days prior to the start of this chest pain. - Physicial Exam PE: 02/14/19 10:43 Agree with the resident's HPI and PE as documented in the electronic medical record. NAD, well appearing, EOMI, PERRL, MMM, nl conjunctiva, anicteric; neck supple. lungs clear, RRR, abdomen soft nontender. Back nontender. ARMAS x4, no focal neuro deficits. No peripheral edema. normal color for ethnicity, WWP. - Medical Decision Making 02/14/19 10:43 See HPI for details. Prior notes reviewed, including admissions, discharges and consultations. Vital signs reviewed, wnl. Vital Signs Temp Pulse Resp BP Pulse Ox 98.5 F 61 16 128/91 100 02/14/19 08:59 02/14/19 08:59 02/14/19 08:59 02/14/19 08:59 02/14/19 08:59 laboratory results and imaging reviewed, basic labs and lytes wnl, notable for neg trop EKG with sinus rhythm, new EKG changes, TWI in lateral leads heart score moderate risk at 4, as documented warrants admit for r/o ACS, tele, cards inpatient and medical management given new changes and typical sx. also prior IN requiring stent 02/14/19 12:24 02/14/19 12:25 Heart Score/ECG Review - History History: Moderately suspicious - Electrocardiogram EKG: Non specific repolarization disturbance - Age Age: 45-65 - Risk Factors Risk Factors Heart Score: Yes Hx Hypercholesterolemia Based on the list above the patient has:: 1-2 risk factors - Troponin Troponin: </= normal limit - Score Heart Score - Total: 4 #1 ECG reviewed & interpreted by me at: 09:00 General ECG Interpretation: Sinus Rhythm, Normal Rate, Normal Intervals Compared to previous ECG there are: Changes noted 02/14/19 10:45 TWI in lateral leads, new changes
[2019-02-14 10:51] LABS: PROTHROMBIN TIME (PATIENT) 11.8 SEC (9.7-13.0)
[2019-02-14 11:02] LABS: ALBUMIN 3.7 g/dl (3.4-5.0); BILIRUBIN,TOTAL 0.5 mg/dL (0.2-1); BLOOD UREA NITROGEN 15.3 mg/dL (7-18); CREATININE 0.8 mg/dL (0.55-1.3); MAGNESIUM 2.5 mg/dL (1.8-2.4); N-TERMINAL BNP 615.8 pg/ml (5-125); POTASSIUM 4.7 mmol/L (3.5-5.1)
[2019-02-14 12:10] VITALS: TEMP 98.2
[2019-02-14] MEDS ORDERED: ACETAMINOPHEN 1000 MG/100 ML VIAL (NON FORMULARY) IVPB ONE (12:36)
--- NOTE | 2019-02-14 12:48 | CON.CARD ---
Consult Consult Specialty:: Cardiology Referred by:: Hospitalist Reason for Consultation:: Chest pain - History of Present Illness Chief Complaint: chest pain History of Present Illness: 48 year old woman with a pmh HTN, HLD, smoking, HCV, HBV, IVDA, CAD s/p NSTEMI s/p PCI with DARIN mLAD at [facility] admitted from [facility] for c/o chest pain. Pt seen and examined today in [facility]. states she has had the same L sided chest pain on and off since her PCI. states that is usually associated with nausea and vomiting and that she feels it is GERD vs MSK pain. On review of records from [facility] she was seen last by Dr. Jerri Benjamin and had a nuclear stress test 04/21/18 which showed normal perfusion, no ischemia, normal LVEF. She states her current pain is the same as prior, L sided, sharp, non-radiating , point tenderness that is reproducible on palpation and deep inspiration. NST106/21/17 The calculated left ventricular ejection fraction is normal at 60% . In the stress SPECT images, tracer is uniformly distributed throughout the heart, suggesting normal myocardial perfusion. In the resting images, tracer distributed homogeneously matched with the stress images. There is normal wall motion and thickening. There is no LV cavity dilatation. The global LV wall motion is normal . ECHO 10/07/17 Interpretation Summary Normal left ventricular wall motion and ejection fraction. - History Source History Provided By: Patient, Medical Record Limitations to Obtaining History: No Limitations - Past Medical History Cardio/Vascular: Yes: CAD, HTN, Hyperlipdemia Gastrointestinal: Yes: GERD ...LMP: 09/26/11 - Alcohol/Substance Use Hx Alcohol Use: Yes - Smoking History Smoking history: Unknown if ever smoked Have you smoked in the past 12 months: Yes Aproximately how many cigarettes per day: 10 - Social History ADL: Independent History of Recent Travel: No Home Medications - Allergies Allergies/Adverse Reactions: Allergies Allergy/AdvReac Type Severity Reaction Status Date / Time divalproex sodium Allergy Intermediate Verified 02/14/19 09:37 [From Depakote] Sulfa (Sulfonamide Allergy Intermediate Verified 02/14/19 09:37 Antibiotics) haloperidol [From Haldol] AdvReac Severe Difficulty Verified 02/14/19 09:37 Breathing - Home Medications Home Medications: Ambulatory Orders Tenofovir Alafenamide Fumarate [Vemlidy] 300 mg PO DAILY 01/31/18 Quetiapine Fumarate [Seroquel -] 200 mg PO BID 02/02/18 Mirtazapine 15 mg PO DAILY 01/11/19 Ondansetron [Zofran *Odt*] 4 mg SL TID PRN 01/11/19 Albuterol Sulfate Inhaler - [Ventolin HFA Inhaler -] 2 puff IH Q4H PRN #1 inhaler 01/16/19 Aspirin [ASA -] 81 mg PO DAILY #30 tab.chew 01/16/19 Clopidogrel Bisulfate [Plavix -] 75 mg PO DAILY #30 tablet 01/16/19 Metoprolol Succinate [Toprol XL -] 25 mg PO DAILY #30 tab.sr.24h 01/16/19 Pantoprazole Sodium [Protonix -] 40 mg PO DAILY@0600 #10 tablet.ec 01/16/19 Quetiapine Fumarate [Seroquel -] 50 mg PO HS #30 tablet 01/16/19 Ranitidine [Zantac -] 150 mg PO DAILY #60 tablet 01/16/19 Enalapril Maleate [Vasotec -] 5 mg PO BID 02/09/19 Atorvastatin Ca [Lipitor] 40 mg PO HS 02/10/19 Mirtazapine [Remeron -] 15 mg PO HS 02/10/19 Review of Systems - Review of Systems Constitutional: denies: No Symptoms, Chills, Diaphoresis, Fever, Lethargy, Loss of Appetite, Malaise, Night Sweats, Unintentional Wgt. Loss, Weakness, Other Eyes: denies: No Symptoms, Blind Spots, Blurred Vision, Double Vision, Eye Pain , Floaters, Photophobia, Recent Change in Vision, Other HENT: denies: No Symptoms, Difficult Swallowing, Ear Discharge, Ear Pain, Epistaxis, Gingival Bleeding, Hearing Loss, Mouth Swelling, Nasal Congestion, Ocular Prosthesis, Throat Pain, Toothache, Ringing in Ears, Other Neck: denies: No Symptoms, Decreased ROM, Lumps, Pain on Movement, Stiffness, Swollen Glands, Tenderness, Other Cardiovascular: reports: Chest Pain. denies: No Symptoms, Edema, Palpitations, Shortness of Breath, Other Respiratory: denies: No Symptoms, Cough, Exercise Intolerance, Hemoptysis, Orthopnea, PND, Snoring, SOB, SOB on Exertion, Wheezing, Other Gastrointestinal: denies: No Symptoms, Abdominal Pain, Bloating, Constipation, Diarrhea, Dysphagia, Indigestion, Melena, Nausea, Rectal Bleeding, Vomiting, Vomiting Blood, Other Genitourinary: denies: No Symptoms, Burning, Discharge, Dysuria, Flank Pain, Frequency, Hematuria, Incontinence, Lesions, Menses, Pain, Testicular Mass, Testicular Pain, Testicular Swelling, Urgency, Vaginal Bleeding, Other Breasts: denies: No Symptoms Reported, See HPI, Breast Implants, Discharge from Nipple, Lumps, Pain, Skin Changes, Other Musculoskeletal: denies: No Symptoms, Back Pain, Crepitus, Decreased ROM, Extremity Pain, Joint Pain, Joint Swelling, Muscle Pain, Muscle Cramps, Muscle Weakness, Other Integumentary: reports: No Symptoms 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: reports: No Symptoms Endocrine: reports: No Symptoms Hematology/Lymphatic: reports: No Symptoms - Risk Factors Known Risk Factors: Yes: Hypercholesterolemia, Hypertension, Prior KS /Emb Stroke, Smoking Vital Signs: Vital Signs Temperature 98.2 F 02/14/19 12:09 Pulse Rate 68 02/14/19 12:09 Respiratory Rate 18 02/14/19 12:09 Blood Pressure 144/94 02/14/19 12:09 O2 Sat by Pulse Oximetry (%) 100 02/14/19 08:59 Constitutional: Yes: No Distress, Calm Eyes: Yes: Conjunctiva Clear, EOM Intact HENT: Yes: Atraumatic, Normocephalic Neck: Yes: Supple, Trachea Midline Respiratory: Yes: Regular, CTA Bilaterally. No: Rales, Rhonchi, SOB, Wheezes Gastrointestinal: Yes: Normal Bowel Sounds, Soft. No: Distention, Tenderness JVD: No Carotid Bruit: No PMI: Non-Displaced Heart Sounds: Yes: S1, S2. No: Split S2, S3, S4, Clicks, Gallop, Rub, Bruit Murmur: No: Systolic Murmur, Diastolic Murmur Edema: No Peripheral Pulses WNL: Yes 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: Yes: Alert, Oriented Psychiatric: Yes: Alert, Oriented - Other Data Labs, Other Data: CBC, BMP 02/14/19 10:10 02/14/19 10:10 INR, PTT INR 1.00 (0.83-1.09) 02/14/19 10:10 Troponin, BNP 02/14/19 10:10 Troponin I < 0.02 B-Natriuretic Peptide 615.8 H Troponin, BNP 02/14/19 10:10 Troponin I < 0.02 B-Natriuretic Peptide 615.8 H ekg-nsr T wave abnl consider inferior ischemia Echo: Report Reviewed Prior Cardiac Procedures: PTCA with Stent Imaging - Results Chest X-ray: Report Reviewed, Image Reviewed EKG: Report Reviewed, Image Reviewed Other: Report Reviewed Assessment/Plan 48 year old woman with a pmh HTN, HLD, smoking, HCV, HBV, IVDA, CAD s/p NSTEMI s/p PCI with DARIN mLAD at [facility] admitted from [facility] for c/o chest pain. Pt seen and examined today in [facility]. states she has had the same L sided chest pain on and off since her PCI. states that is usually associated with nausea and vomiting and that she feels it is GERD vs MSK pain. On review of records from [facility] she was seen last by Dr. Jerri Benjamin and had a nuclear stress test 04/21/18 which showed normal perfusion, no ischemia, normal LVEF. She states her current pain is the same as prior, L sided, sharp, non-radiating , point tenderness that is reproducible on palpation and deep inspiration. Chest pain-known h/o CAD NSTEMI and PCI LAD 2016, current chest pain, atypical, unlikely ACS -pt reports same L sided chest pain on and off since her PCI -point tenderness reproducible on exam -nuclear stress test as below 04/21/18 showed no ischemia and normal LVEF -echo 10/07/17 showed normal LVEF no sig valvular abnl -cardiac enzymes wnl x 1 -ekg mildly abnl -would check 2nd set of cardiac enzymes and if wnl pt would be acceptable for discharge from a cardiac standpoint with outpatient fup. -no other inpatient cardiac testing is needed at this time. -pt agrees to fup with her buttonhole marker within 1-2 weeks of discharge from [facility]. -cont current medical regimen Will see as needed. Please call with any additional questions. NST106/21/17 The calculated left ventricular ejection fraction is normal at 60% . In the stress SPECT images, tracer is uniformly distributed throughout the heart, suggesting normal myocardial perfusion. In the resting images, tracer distributed homogeneously matched with the stress images. There is normal wall motion and thickening. There is no LV cavity dilatation. The global LV wall motion is normal . ECHO 10/07/17 Interpretation Summary Normal left ventricular wall motion and ejection fraction.
[2019-02-14] MEDS ORDERED: ALBUTEROL SO4 8 GM HFA INHALER IH PRN (12:50)
[2019-02-14] MEDS ORDERED: ONDANSETRON *ODT* 4 MG TABLET SL PRN (12:50)
--- NOTE | 2019-02-14 13:16 | HP ---
CHIEF COMPLAINT: chest pain PCP: at [facility] HISTORY OF PRESENT ILLNESS: Patient is a 48 y/o female with a history of CAD s/p stents (2016), CHF, HLD, HTN, Hep C ( cured with medication), Hepatitis B, and GERD who presents for chest pain. Patient has been at [facility] for rehab for heroin abuse. Patient reports she woke up this morning with chest pain and thought it was her GERD so she took her medication and the pain persisted. Patient reports she has been having this pain on and off for two years since her stent placed. Most recently she had the pain two days ago. She notes she has numbness and tingling in her arm during the pain episodes and feels sweaty. The pain is not associated with any movement or anything but comes and goes. Patient reports she often has chronic pain but is restricted on the medications she can take as she has liver disease. Patient denies nausea, vomiting, headache, dysuria, or shortness of breath. Patient relapsed and has been doing heroin for the last month. Just recently she started IV use. She has been using on and off since she was 21. [address] Vasquez who was able to pull up her cardio records from [facility]. She had a stress test last March and it showed normal perfusion. 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 ER course was notable for: (1) ekg with new twave inversions in V5 and V6 (2) ASA 162 (3) Recent Travel: denies PAST MEDICAL HISTORY: CAD s/p stents (2017), CHF, HLD, HTN, Hep C ( cured with medication), Hepatitis B, and GERD PAST SURGICAL HISTORY: Social History: Smokin a day Alcohol: denies Drugs: heroin Allergies divalproex sodium [From Depakote] Allergy (Intermediate, Verified 02/14/19 09:37 ) Sulfa (Sulfonamide Antibiotics) Allergy (Intermediate, Verified 02/14/19 09:37) haloperidol [From Haldol] Adverse Reaction (Severe, Verified 02/14/19 09:37) Difficulty Breathing HOME MEDICATIONS: Home Medications Medication Instructions Recorded Tenofovir Alafenamide Fumarate 300 mg PO DAILY 01/31/18 [Vemlidy] Quetiapine Fumarate [Seroquel -] 200 mg PO BID 02/02/18 Mirtazapine 15 mg PO DAILY 01/11/19 Ondansetron [Zofran *Odt*] 4 mg SL TID PRN 01/11/19 Albuterol Sulfate Inhaler - 2 puff IH Q4H PRN #1 inhaler 01/16/19 [Ventolin HFA Inhaler -] Aspirin [ASA -] 81 mg PO DAILY #30 tab.chew 01/16/19 Clopidogrel Bisulfate [Plavix -] 75 mg PO DAILY #30 tablet 01/16/19 Metoprolol Succinate [Toprol XL -] 25 mg PO DAILY #30 tab.sr.24h 01/16/19 Pantoprazole Sodium [Protonix -] 40 mg PO DAILY@0600 #10 tablet.ec 01/16/19 Quetiapine Fumarate [Seroquel -] 50 mg PO HS #30 tablet 01/16/19 Ranitidine [Zantac -] 150 mg PO DAILY #60 tablet 01/16/19 Enalapril Maleate [Vasotec -] 5 mg PO BID 02/09/19 Atorvastatin Ca [Lipitor] 40 mg PO HS 02/10/19 Mirtazapine [Remeron -] 15 mg PO HS 02/10/19 REVIEW OF SYSTEMS CONSTITUTIONAL: Absent: fever, chills, diaphoresis, generalized weakness, malaise, loss of appetite, weight change HEENT: Absent: rhinorrhea, nasal congestion, throat pain, throat swelling, difficulty swallowing, mouth swelling, ear pain, eye pain, visual changes CARDIOVASCULAR: chest pain Absent: chest pain, syncope, palpitations, irregular heart rate, lightheadedness , peripheral edema RESPIRATORY: Absent: cough, shortness of breath, dyspnea with exertion, orthopnea, wheezing, stridor, hemoptysis GASTROINTESTINAL: Absent: abdominal pain, abdominal distension, nausea, vomiting, diarrhea, constipation, melena, hematochezia GENITOURINARY: Absent: dysuria, frequency, urgency, hesitancy, hematuria, flank pain, genital pain MUSCULOSKELETAL: Absent: myalgia, arthralgia, joint swelling, back pain, neck pain SKIN: Absent: rash, itching, pallor HEMATOLOGIC/IMMUNOLOGIC: Absent: easy bleeding, easy bruising, lymphadenopathy, frequent infections ENDOCRINE: Absent: unexplained weight gain, unexplained weight loss, heat intolerance, cold intolerance NEUROLOGIC: Absent: headache, focal weakness or paresthesias, dizziness, unsteady gait, seizure, mental status changes, bladder or bowel incontinence PSYCHIATRIC: Absent: anxiety, depression, suicidal or homicidal ideation, hallucinations. PHYSICAL EXAMINATION Vital Signs - 24 hr 02/14/19 02/14/19 08:59 12:09 Temperature 98.5 F 98.2 F Pulse Rate 61 Pulse Rate [ 68 Right Radial] Respiratory 16 18 Rate Blood Pressure 128/91 Blood Pressure 144/94 [Left Arm] O2 Sat by Pulse 100 Oximetry (%) GENERAL: Awake, alert, and fully oriented, in no acute distress. HEAD: Normal with no signs of trauma. EYES: Pupils equal, round and reactive to light, extraocular movements intact, EARS, NOSE, THROAT: Moist mucous membranes. LUNGS: Breath sounds equal, clear to auscultation bilaterally. No wheezes, and no crackles. No accessory muscle use. HEART: Regular rate and rhythm, normal S1 and S2 without murmur, rub or gallop. ABDOMEN: Soft, nontender, not distended, normoactive bowel sounds, MUSCULOSKELETAL: Normal range of motion at all joints. tenderness to upper thoraci region on palpation. No CVA tenderness. UPPER EXTREMITIES: left arm antecubital track martel, no signs of infection LOWER EXTREMITIES: 2+ pulses, warm, well-perfused. No calf tenderness. No peripheral edema. NEUROLOGICAL: Cranial nerves II-XII intact. Normal speech. Normal gait. SKIN: Warm, dry, normal turgor, no rashes or lesions noted, normal capillary refill. CBC,CMP WBC 7.0 K/mm3 (4.0-10.0) 02/14/19 10:10 RBC 4.49 M/mm3 (3.60-5.2) 02/14/19 10:10 Hgb 14.8 GM/dL (10.7-15.3) 02/14/19 10:10 Hct 44.5 % (32.4-45.2) 02/14/19 10:10 MCV 99.0 fl (80-96) H 02/14/19 10:10 MCH 32.8 pg (25.7-33.7) 02/14/19 10:10 MCHC 33.2 g/dl (32.0-36.0) 02/14/19 10:10 RDW 15.6 % (11.6-15.6) 02/14/19 10:10 Plt Count 140 K/MM3 (134-434) 02/14/19 10:10 MPV 9.3 fl (7.5-11.1) 02/14/19 10:10 Absolute Neuts (auto) 4.5 K/mm3 (1.5-8.0) 02/14/19 10:10 Neutrophils % 65.4 % (42.8-82.8) 02/14/19 10:10 Lymphocytes % 26.2 % (8-40) 02/14/19 10:10 Monocytes % 6.7 % (3.8-10.2) 02/14/19 10:10 Eosinophils % 1.5 % (0-4.5) 02/14/19 10:10 Basophils % 0.2 % (0-2.0) 02/14/19 10:10 Nucleated RBC % 0 % (0-0) 02/14/19 10:10 Sodium 139 mmol/L (136-145) 02/14/19 10:10 Potassium 4.7 mmol/L (3.5-5.1) 02/14/19 10:10 Chloride 105 mmol/L (98-107) 02/14/19 10:10 Carbon Dioxide 29 mmol/L (21-32) 02/14/19 10:10 Anion Gap 5 MMOL/L (8-16) L 02/14/19 10:10 BUN 15.3 mg/dL (7-18) 02/14/19 10:10 Creatinine 0.8 mg/dL (0.55-1.3) 02/14/19 10:10 Est GFR (CKD-EPI)AfAm 101.04 02/14/19 10:10 Est GFR (CKD-EPI)NonAf 87.18 02/14/19 10:10 Random Glucose 82 mg/dL (74-106) 02/14/19 10:10 Calcium 9.0 mg/dL (8.5-10.1) 02/14/19 10:10 Magnesium 2.5 mg/dL (1.8-2.4) H 02/14/19 10:10 Total Bilirubin 0.5 mg/dL (0.2-1) 02/14/19 10:10 AST 70 U/L (15-37) H 02/14/19 10:10 ALT 91 U/L (13-61) H 02/14/19 10:10 Alkaline Phosphatase 115 U/L (45-117) 02/14/19 10:10 Creatine Kinase 87 U/L (26-192) 02/14/19 10:10 Troponin I < 0.02 ng/ml (0.00-0.05) 02/14/19 10:10 B-Natriuretic Peptide 615.8 pg/ml (5-125) H 02/14/19 10:10 Total Protein 7.0 g/dl (6.4-8.2) 02/14/19 10:10 Albumin 3.7 g/dl (3.4-5.0) 02/14/19 10:10 ASSESSMENT/PLAN: Patient is a 48 y/o female with a history of CAD s/p stents (2016), CHF, HLD, HTN, Hep C ( cured with medication), Hepatitis B, and GERD who presents for chest pain. #chest pain, r/o ACS - troponin negative x1, f/u second troponin - ekg with new V5 and V6 t wave inversions compared from December - ASA 162 given, continue ASA 81 #CAD with stents - continue plavix and ASA - done at [facility] in December 2016 - stress test March 2018 with normal perfusion - case discussed with Dr Vasquez #HTN - continue enalapril and metoprolol #heroin detox - consulted Dr Pearce - patient on symptomatic management - would like to be discharged back to [facility] - continue remeron and seroquel #Hepatitis B and C - continue tenofovir for hepatitis B - hepatitis C resolved with treatment per patient - elevated transaminitis, one time tylenol ordered FEN - sodium controlled diet Dispo: monitor for second troponin and then can DC Visit type - Emergency Visit Emergency Visit: Yes ED Registration Date: 02/14/19 Care time: The patient presented to the Emergency Department on the above date and was hospitalized for further evaluation of their emergent condition. - New Patient This patient is new to me today: Yes Date on this admission: 02/15/19 - Critical Care Critical Care patient: No ATTENDING PHYSICIAN STATEMENT I saw and evaluated the patient. I reviewed the resident's note and discussed the case with the resident. I agree with the resident's findings and plan as documented. SUBJECTIVE: OBJECTIVE: ASSESSMENT AND PLAN:
[2019-02-14] MEDS ORDERED: PROCHLORPERAZINE MALEATE 5 MG TABLET PO ONE (13:31)
[2019-02-14] MEDS ORDERED: PANTOPRAZOLE SODIUM 40 MG VIAL IVPUSH ONE (14:09)
[2019-02-14] MEDS ORDERED: TRIMETHOBENZAMIDE HCL 300 MG CAPSULE PO ONE (14:10)
[2019-02-14] MEDS ORDERED: PANTOPRAZOLE SODIUM 40 MG/100 ML BAG IVPB ONE (14:22)
[2019-02-14] MEDS ORDERED: IBUPROFEN 600 MG TABLET (FP) PO ONE (14:57)
[2019-02-14] MEDS ORDERED: CYCLOBENZAPRINE HCL 5 MG TABLET PO ONE (15:25)
[2019-02-14] MEDS ORDERED: LIDOCAINE VISCOUS 2% ORAL/TOP 20 ML UNIT-DOSE CUP MM ONE (15:26)
[2019-02-14] MEDS ORDERED: MAG HYDROX/AL HYDROX/SIMETH 30 ML UNIT-DOSE CUP PO ONE (15:26)
[2019-02-14] MEDS ORDERED: CYCLOBENZAPRINE HCL 10 MG TABLET (FP) ONE (15:44)
--- NOTE | 2019-02-14 16:38 | DS ---
Physical Exam: SUBJECTIVE: Patient seen and examined, pain improved with medication. OBJECTIVE: Vital Signs Period Temp Pulse Resp BP Sys/Murillo Pulse Ox Last 24 Hr 98.2 F-98.5 F 61-68 16-18 128-144/91-94 100 PHYSICAL EXAM GENERAL: Awake, alert, and fully oriented, in no acute distress. HEAD: Normal with no signs of trauma. EYES: Pupils equal, round and reactive to light, extraocular movements intact, EARS, NOSE, THROAT: Moist mucous membranes. LUNGS: Breath sounds equal, clear to auscultation bilaterally. No wheezes, and no crackles. No accessory muscle use. HEART: Regular rate and rhythm, normal S1 and S2 without murmur, rub or gallop. ABDOMEN: Soft, nontender, not distended, normoactive bowel sounds, MUSCULOSKELETAL: Normal range of motion at all joints. tenderness to upper thoraci region on palpation. No CVA tenderness. UPPER EXTREMITIES: left arm antecubital track martel, no signs of infection LOWER EXTREMITIES: 2+ pulses, warm, well-perfused. No calf tenderness. No peripheral edema. NEUROLOGICAL: Cranial nerves II-XII intact. Normal speech. Normal gait. SKIN: Warm, dry, normal turgor, no rashes or lesions noted, normal capillary refill. LABS CBC, BMP 02/14/19 10:10 02/14/19 10:10 HOSPITAL COURSE: Date of Admission:02/14/19 Patient is a 48 y/o female with a history of CAD s/p stents (2016), CHF, HLD, HTN, Hep C ( cured with medication), Hepatitis B, and GERD who presents for chest pain. Patient had two negative troponins. Cardio evaluated patient with a negative stress test within one year. Patient can continue cardiac workup as an out patient. Patient vitals stable for discharge. ekg with new V5 and V6 t wave inversions compared from December Date of Discharge: 02/14/19 Minutes to complete discharge: 35 Discharge Summary Problems reviewed: Yes Reason For Visit: HYPERTENSION Current Active Problems Chest pain due to CAD (Acute) Alcohol dependence (Chronic) Bipolar disorder (Chronic) Cannabis dependence (Chronic) Cocaine dependence (Chronic) Insomnia (Chronic) Nicotine dependence (Chronic) Opioid dependence (Chronic) Substance induced mood disorder (Chronic) Condition: Good - Instructions Diet, Activity, Other Instructions: You were admitted to the hospital for chest pain. While you were here we monitored your heart and looked at your heart enzymes. At this time your heart is functioning normally and you are stable to be discharged back to [facility] to continue rehab. Please make sure to follow up with your Geoscience Professor in 1-2 weeks. Please continue to take all of your home medications as prescribed. Follow up with your primary care physician within one week. Return to the Emergency Department if you have any nausea, vomiting, diarrhea, headache, shortness of breath, or worsening symptoms. Referrals: Jerri Benjamin MD [Non Staff, Medical] - 1 Week Disposition: I.P. ALCOHOL/SUBS ABUSE REHAB - Home Medications Comprehensive Discharge Medication List: Ambulatory Orders Tenofovir Alafenamide Fumarate [Vemlidy] 300 mg PO DAILY 01/31/18 Quetiapine Fumarate [Seroquel -] 200 mg PO BID 02/02/18 Ondansetron [Zofran *Odt*] 4 mg SL TID PRN 01/11/19 Albuterol Sulfate Inhaler - [Ventolin HFA Inhaler -] 2 puff IH Q4H PRN #1 inhaler 01/16/19 Aspirin [ASA -] 81 mg PO DAILY #30 tab.chew 01/16/19 Clopidogrel Bisulfate [Plavix -] 75 mg PO DAILY #30 tablet 01/16/19 Metoprolol Succinate [Toprol XL -] 25 mg PO DAILY #30 tab.sr.24h 01/16/19 Pantoprazole Sodium [Protonix -] 40 mg PO DAILY@0600 #10 tablet.ec 01/16/19 Quetiapine Fumarate [Seroquel -] 50 mg PO HS #30 tablet 01/16/19 Ranitidine [Zantac -] 150 mg PO DAILY #60 tablet 01/16/19 Enalapril Maleate [Vasotec -] 5 mg PO BID 02/09/19 Atorvastatin Ca [Lipitor] 40 mg PO HS 02/10/19 Mirtazapine [Remeron -] 15 mg PO HS 02/10/19 This patient is new to me today: No Emergency Visit: Yes ED Registration Date: 02/14/19 Care time: The patient presented to the Emergency Department on the above date and was hospitalized for further evaluation of their emergent condition. Critical Care patient: No - Discharge Referral [facility]erred to [facility] Med P.C.: No ATTENDING PHYSICIAN STATEMENT I saw and evaluated the patient. I reviewed the resident's note and discussed the case with the resident. I agree with the resident's findings and plan as documented. SUBJECTIVE: OBJECTIVE: ASSESSMENT AND PLAN:
[2019-02-14 16:57] VITALS: BP 170/89; PULSE 67
--- NOTE | 2019-02-14 20:14 | PN ---
Teaching Attending Note Name of Resident: Jerri Hermosillo ATTENDING PHYSICIAN STATEMENT I saw and evaluated the patient. I reviewed the resident's note and discussed the case with the resident. I agree with the resident's findings and plan as documented. SUBJECTIVE: CP resolved. No palpitations/SOB/cough/sputum/hemoptysis/fever/ chills. OBJECTIVE: Afebrile, Hemodnamically stable. Last Vital Signs Temp Pulse Resp BP Pulse Ox 98.2 F 67 14 170/89 100 02/14/19 12:09 02/14/19 16:55 02/14/19 16:55 02/14/19 16:55 02/14/19 08:59 HEENT - Atraumatic, Normocephalic Heart - S1, S2, RRR Lungs - clear to auscultation Abdomen - Soft non-tender. Bowel Sounds normal. Extremities - no edema, no calf tenderness Neuro - AAO x 3. Tone/Power normal all 4 extremities. Laboratory Results - last 24 hr 02/14/19 02/14/19 02/14/19 10:10 10:10 10:10 WBC 7.0 RBC 4.49 Hgb 14.8 Hct 44.5 MCV 99.0 H MCH 32.8 MCHC 33.2 RDW 15.6 Plt Count 140 MPV 9.3 Absolute Neuts (auto) 4.5 Neutrophils % 65.4 Lymphocytes % 26.2 Monocytes % 6.7 Eosinophils % 1.5 Basophils % 0.2 Nucleated RBC % 0 PT with INR INR Sodium 139 Potassium 4.7 Chloride 105 Carbon Dioxide 29 Anion Gap 5 L BUN 15.3 Creatinine 0.8 Est GFR (CKD-EPI)AfAm 101.04 Est GFR (CKD-EPI)NonAf 87.18 Random Glucose 82 Calcium 9.0 Magnesium 2.5 H Total Bilirubin 0.5 AST 70 H ALT 91 H Alkaline Phosphatase 115 Creatine Kinase 87 Troponin I < 0.02 B-Natriuretic Peptide 615.8 H Total Protein 7.0 Albumin 3.7 Urine HCG, Qual 02/14/19 02/14/19 02/14/19 10:10 10:30 15:43 WBC RBC Hgb Hct MCV MCH MCHC RDW Plt Count MPV Absolute Neuts (auto) Neutrophils % Lymphocytes % Monocytes % Eosinophils % Basophils % Nucleated RBC % PT with INR 11.80 INR 1.00 Sodium Potassium Chloride Carbon Dioxide Anion Gap BUN Creatinine Est GFR (CKD-EPI)AfAm Est GFR (CKD-EPI)NonAf Random Glucose Calcium Magnesium Total Bilirubin AST ALT Alkaline Phosphatase Creatine Kinase Troponin I < 0.02 B-Natriuretic Peptide Total Protein Albumin Urine HCG, Qual Negative Home Medications Medication Instructions Recorded Tenofovir Alafenamide Fumarate 300 mg PO DAILY 01/31/18 [Vemlidy] Quetiapine Fumarate [Seroquel -] 200 mg PO BID 02/02/18 Ondansetron [Zofran *Odt*] 4 mg SL TID PRN 01/11/19 Albuterol Sulfate Inhaler - 2 puff IH Q4H PRN #1 inhaler 01/16/19 [Ventolin HFA Inhaler -] Aspirin [ASA -] 81 mg PO DAILY #30 tab.chew 01/16/19 Clopidogrel Bisulfate [Plavix -] 75 mg PO DAILY #30 tablet 01/16/19 Metoprolol Succinate [Toprol XL -] 25 mg PO DAILY #30 tab.sr.24h 01/16/19 Pantoprazole Sodium [Protonix -] 40 mg PO DAILY@0600 #10 tablet.ec 01/16/19 Quetiapine Fumarate [Seroquel -] 50 mg PO HS #30 tablet 01/16/19 Ranitidine [Zantac -] 150 mg PO DAILY #60 tablet 01/16/19 Enalapril Maleate [Vasotec -] 5 mg PO BID 02/09/19 Atorvastatin Ca [Lipitor] 40 mg PO HS 02/10/19 Mirtazapine [Remeron -] 15 mg PO HS 02/10/19 ASSESSMENT AND PLAN: 48 year old female with history of CAD s/p NSTEMI 01/07 s/p PCI with DARIN to LAD, HLD, HTN, Hep C (s/p treatment), Hepatitis B (on Tenofivir), GERD, Heroin Use, presents from [facility] with chest pain wit associated arm discomfort/tingling and diaphoresis. 1. Atypical CP in patient with Hx CAd s/p NSTEMI s/p DARIN to LAD 2016 Troponin neg x 2. ECG - new anterolateral T wave changes s/p NM stress 04/21/18 that showed normal myocardial perfusion. Echo 10/08/18 - normal. Seen by Cardiology and cleared for discharge with Cardio out-patient follow up. Continue Aspirin, Clopidogrel, BB, SANDY-I, Statin. 2. HTN - continue Enalapril and Metoprolol. 3. Hepatitis B/C s/p Rx for Hep C On Tenofivir 4. IVDU/heroin use At [facility] Detox For discharge back to 5. Depression/Anxiety - Continue remeron and seroquel Medically Stable for discharge back to [facility] to continue Detox. Cardio out- patient follow up.
[2019-02-14] MEDS ORDERED: ENALAPRIL MALEATE 10 MG TABLET (FP) PO SCH (22:00)
[2019-02-14] MEDS ORDERED: ATORVASTATIN CA 40 MG TABLET (FP) PO SCH (22:00)
[2019-02-14] MEDS ORDERED: HEPARIN NA (PORCINE) 5,000 UNITS/ML 1ML VIAL SQ SCH (22:00)
[2019-02-14] MEDS ORDERED: MIRTAZAPINE 15 MG TABLET (FP) PO SCH (22:00)
[2019-02-14] MEDS ORDERED: QUEtiapine FUMARATE 50 MG TABLET PO SCH (22:00)
[2019-02-15] MEDS ORDERED: PANTOPRAZOLE 40 MG TABLET (FP) PO SCH (06:00)
[2019-02-15] MEDS ORDERED: CLOPIDOGREL BISULFATE 75 MG TABLET (FP) PO SCH (10:00)
[2019-02-15] MEDS ORDERED: ASPIRIN 81 MG CHEWABLE TABLETS PO SCH (10:00)
[2019-02-15] MEDS ORDERED: TENOFOVIR ALAFENAMIDE FUMARATE PO SCH (10:00)
[2019-02-15] MEDS ORDERED: metoPROLOL SUCCINATE 25 MG TAB.SR.24H (FP) PO SCH (10:00)
== END 2019-02-14 17:05 | disposition other institution (70) ==
LOC: JER 08:45 → INTOOBSV 11:35 → UNDOADMOB 11:35 → JERBED 11:35
PROC: 3E033NZ Introduction of Analgesics, Hypnotics, Sedatives into Peripheral Vein, Percutaneous Approach (ICD-10-PCS; principal; 2019-02-14)
PROC: 3E033GC Introduction of Other Therapeutic Substance into Peripheral Vein, Percutaneous Approach (ICD-10-PCS; 2019-02-14)
DX: R07.89 Other chest pain (principal); F11.20 Opioid dependence, uncomplicated; F10.20 Alcohol dependence, uncomplicated; F14.20 Cocaine dependence, uncomplicated; F12.20 Cannabis dependence, uncomplicated; F19.24 Other psychoactive substance dependence with psychoactive substance-induced mood disorder; F32.9 Major depressive disorder, single episode, unspecified; I11.0 Hypertensive heart disease with heart failure; I50.9 Heart failure, unspecified; I25.10 Atherosclerotic heart disease of native coronary artery without angina pectoris; E78.5 Hyperlipidemia, unspecified; K21.9 Gastro-esophageal reflux disease without esophagitis; J45.909 Unspecified asthma, uncomplicated; Z86.19 Personal history of other infectious and parasitic diseases; Z86.73 Personal history of transient ischemic attack (TIA), and cerebral infarction without residual deficits; Z95.5 Presence of coronary angioplasty implant and graft; Z88.5 Allergy status to narcotic agent; Z88.8 Allergy status to other drugs, medicaments and biological substances
CPT/HCPCS: 36415; 71046-TC-FY; 80053; 82550; 83735; 83880; 84484; 84703; 85025; 85610; 87040; 96374; 96375; 99285-25; G0378; J0131